=== PATIENT | male | born 1935 | race Caucasian/White ===

== ENCOUNTER → 2018-09-22 16:47 | Outpatient (CLI) | payer MEDICARE, MEDICAID, SELFPAY ==
[2018-09-22 17:23] LABS: Basophils % 0.5 % (0.1-2.0); Eosinophils # 0.2 K/mm3 (0.0-0.4); Eosinophils % 2.4 % (0.1-12.0); Hematocrit 41.2 % (42.0-52.0); Hemoglobin 13.3 g/dL (14.1-18.0); Lymphocytes # 1.7 K/mm3 (0.7-4.5); Lymphocytes % 25.3 % (10-50); Mean Corpuscular HGB Conc 32.3 g/dL (31.8-35.4); Mean Corpuscular Hemoglobin 30.2 pg (27.0-31.2); Mean Corpuscular Volume 93.3 fl (80-94); Mean Platelet Volume 7.4 fl (7.4-10.4); Monocytes # 0.4 K/mm3 (0.1-1.0); Monocytes % 5.4 % (1.7-9.3); Neutrophils # 4.5 K/mm3 (1.8-7.8); Neutrophils % 66.5 % (37.0-80.0); Platelet Count 377 K/mm3 (142-424); Red Blood Count 4.41 M/mm3 (4.60-6.20); Red Cell Distribution Width 13.4 % (11.5-17.5); White Blood Count 6.8 K/mm3 (4.8-10.8)
[2018-09-22 18:12] LABS: Alanine Aminotransferase 19 U/L (12-78); Albumin Level 3.8 gm/dL (3.4-5.0); Alkaline Phosphatase 86 U/L (46-116); Anion Gap 13.3 mEq/L (5-15); Aspartate Amino Transferase 17 U/L (15-37); Bilirubin,Total 0.5 mg/dL (0.2-1.0); Blood Urea Nitrogen 22 mg/dL (7-18); Calcium 9.3 mg/dL (8.5-10.1); Carbon Dioxide 28 mmol/L (21.0-32.0); Chloride 103 mmol/L (98-107); Chol/HDL Ratio 6.2 (1-3.5); Cholesterol 236 mg/dL (140-200); Creatinine,Serum 1.33 mg/dL (0.70-1.30); Estimated Glomerular Filt Rate 52 ml/min (>60); GFR (African American) 62 ML/MIN (>60); Globulin 3.7 gm/dl (1.3-3.2); Glucose 94 mg/dL (74-106); HDL Cholesterol 38 mg/dL (27-67); LDL Cholesterol 163 mg/dL (0-130); Potassium 4.3 mmoL/L (3.5-5.1); Sodium 140 mmol/L (136-145); T4 (Thyroxine) 9.6 ug/dl (4.7-13.3); Thyroid Stimulating Hormone 7.48 uIU/ml (0.358-3.740); Total Protein,Serum 7.5 gm/dL (6.4-8.2); Triglycerides 177 mg/dL (30-200); VLDL Cholesterol 35 mg/dL (0-40)
[2018-09-24 18:01] LABS: Vitamin D 25 Hydroxy 41.3 ng/mL (30.0-100.0)
== END ==
PROVIDERS: Visit Provider Nurse Practitioner Family
DX: I10 Essential (primary) hypertension (principal); R51 Headache
CPT/HCPCS: 80053; 80061; 82652; 84436; 84443; 85025

== ENCOUNTER → 2018-09-23 13:37 | Outpatient (CLI) | payer MEDICARE, MEDICAID, SELFPAY ==
--- NOTE | 2018-09-23 13:41 | CA_ITS ---
PROCEDURE: 2-D M-mode and color Doppler study INDICATIONS FOR THE TEST: Chest pain COPD Heart Murmur Tobacco SmokingX Palpitations Fatigue SyncopeX Edema HypertensionXDiabetes Mellitus Rheumatic Fever SOB DOEXObesity HyperlipidemiaXX Family History HD Additional History PATIENT INFORMATION HEIGHT: 68 WEIGHT:136 GENDER: Male B/P:150/88 2-D/M-MODE INTERPRETATION: 2-D MEASUREMENTS OBSERVED VALUES IN CMS Right Ventricular Dimension (RVDd) 2.7 Interventricular Septum (Thickness)(IVsd) .9 Left Ventricular Internal Dimensions(LVIDd) 5.3 Left Ventricular Posterior Wall (Thickness)(LVPWd) .8 Aortic Root 3.6 Aortic Cusp Separation 1.9 Left Atrial Dimensions (LAD) 2.9 2D 1. Left atrium is mildly enlarged, left ventricle is normal size, there is mild qualitative concentric left ventricular hypertrophy, visually estimated ejection fraction 55% with no regional wall motion abnormality. 2. The right atrium and right ventricle are mildly enlarged with normal contractility. 3. The aortic valve is minimally thickened and fibrosed. 4. The mitral and tricuspid valve leaflets are minimally thickened. 5. The pulmonic valve is poorly present. 6. No significant pericardial effusion noted. DOPPLER INTERROGATION: Doppler interrogation of the aortic, mitral and tricuspid valvular presence of mild mitral and tricuspid regurgitation, calculated right ventricular systolic pressure 38 mm of malignancy consistent with mild pulmonary hypertension, grade 1 diastolic dysfunction seen without tissue Doppler evidence of raised left atrial pressure. CONCLUSION: 1. Mildly enlarged left atrium, normal left ventricular size, mild concentric left ventricular hypertrophy, visually estimated ejection fraction 55% with no regional wall motion abnormality, grade 1 diastolic dysfunction seen without tissue Doppler evidence of raised left atrial pressure. 2. Mildly enlarged right ventricle with normal contractility. 3. Mild mitral and tricuspid regurgitation, calculated right ventricular systolic pressure is 38 mmHg consistent with mild pulmonary hypertension. 4. No significant pericardial effusion noted.
--- NOTE | 2018-09-23 13:41 | CI_ITS ---
Cerebrovascular Exam Indications: 780.4 Dizziness and giddiness. 780.2 Syncope and collapse. IMPRESSIONS 1. The bilateral vertebral arteries are patent with normal antegrade flow. 2. Study suggests less than 20% stenosis involving the right internal carotid artery. 3. Study suggests less than 20% stenosis involving the left internal carotid artery. History: Risk factors: Current tobacco use. Hypertension. Carotid duplex study. Complete study and Doppler flow study including spectral analysis, color and velasquez scale imaging. Height: Height: 172.7cm. Height: 68in. Weight: Weight: 61.7kg. Weight: 135.7lb. Body mass index: BMI: 20.7kg/m^2. Body surface area: BSA: 1.72m^2. Location: Vascular laboratory. Patient status: Outpatient. Tables: Arterial flow: + +--------+--------+ Location V sys V ed + +--------+--------+ Right CCA - proximal 55.8cm/s 14.9cm/s + +--------+--------+ Right CCA - distal 50.7cm/s 13.8cm/s + +--------+--------+ Right ECA 117cm/s 13.8cm/s + +--------+--------+ Right ICA - proximal 72.2cm/s 27cm/s + +--------+--------+ Right ICA - mid 82.7cm/s 32.5cm/s + +--------+--------+ Right ICA - distal 80.5cm/s 25.4cm/s + +--------+--------+ Right vertebral 45.2cm/s 16cm/s + +--------+--------+ Left CCA - proximal 68.9cm/s 14.3cm/s + +--------+--------+ Left CCA - distal 51.3cm/s 15.4cm/s + +--------+--------+ Left ECA 79.3cm/s 9.9cm/s + +--------+--------+ Left ICA - proximal 89.1cm/s 31.3cm/s + +--------+--------+ Left ICA - mid 86.9cm/s 28.7cm/s + +--------+--------+ Left ICA - distal 77cm/s 26.4cm/s + +--------+--------+ Left vertebral 29.6cm/s 9.4cm/s + +--------+--------+ Velocity ratios: + + + + + + Right, V sys Right, V ed Left, V sys Left, V ed + + + + + + Max ICA/dist CCA 1.63 2.36 1.74 2.03 + + + + + + (Report amended ) Electronically signed by: Teja Okeefe [id number]
== END ==
PROVIDERS: PCP Emergency Medicine; Visit Provider Internal Medicine Cardiovascular Disease
DX: E78.2 Mixed hyperlipidemia (principal); I10 Essential (primary) hypertension; I20.8 Other forms of angina pectoris; R55 Syncope and collapse
CPT/HCPCS: 93306; 93880

== ENCOUNTER → 2018-10-10 09:04 | Outpatient (CLI) | payer MEDICARE, MEDICAID, SELFPAY ==
[2018-10-10 09:18] LABS: Basophils % 0.3 % (0.1-2.0); Eosinophils # 0.3 K/mm3 (0.0-0.4); Eosinophils % 3.1 % (0.1-12.0); Hematocrit 38.8 % (42.0-52.0); Hemoglobin 12.5 g/dL (14.1-18.0); Lymphocytes # 1.5 K/mm3 (0.7-4.5); Lymphocytes % 17.4 % (10-50); Mean Corpuscular HGB Conc 32.3 g/dL (31.8-35.4); Mean Corpuscular Hemoglobin 30.4 pg (27.0-31.2); Monocytes # 0.4 K/mm3 (0.1-1.0); Monocytes % 4.9 % (1.7-9.3); Neutrophils # 6.4 K/mm3 (1.8-7.8); Neutrophils % 74.3 % (37.0-80.0); Platelet Count 422 K/mm3 (142-424); Red Blood Count 4.12 M/mm3 (4.60-6.20); Red Cell Distribution Width 13.1 % (11.5-17.5); White Blood Count 8.6 K/mm3 (4.8-10.8)
[2018-10-10 09:26] LABS: Anion Gap 13.1 mEq/L (5-15); Blood Urea Nitrogen 29 mg/dL (7-18); Calcium 9.6 mg/dL (8.5-10.1); Carbon Dioxide 28 mmol/L (21.0-32.0); Chloride 101 mmol/L (98-107); Creatinine,Serum 1.69 mg/dL (0.70-1.30); Estimated Glomerular Filt Rate 39 ml/min (>60); GFR (African American) 47 ML/MIN (>60); Glucose 96 mg/dL (74-106); Potassium 4.1 mmoL/L (3.5-5.1); Sodium 138 mmol/L (136-145)
== END ==
PROVIDERS: Visit Provider Internal Medicine
DX: I25.10 Atherosclerotic heart disease of native coronary artery without angina pectoris (principal); E78.5 Hyperlipidemia, unspecified; I10 Essential (primary) hypertension
CPT/HCPCS: 36415; 80048; 85025

== ENCOUNTER → 2018-10-12 09:07 | Outpatient (CLI) | payer MEDICARE, MEDICAID, SELFPAY ==
--- NOTE | 2018-10-12 09:08 | CA_ITS ---
APPROVED REPORT Optical Lab Technician: GLO Study Quality: Good Indications: HTN Risk Factors Hypertension Hyperlipidemia Smoking Renal Artery Doppler Origin (R) 134.0/23.7 cm/sec Proximal (R) 121.0/27.5 cm/sec Mid (R) 144.0/32.3 cm/sec Distal (R) 120.0/23.5 cm/sec Renal Aorta Ratio (R) 2.44 Segmental A. (R) 41.3/15.3 cm/sec RI: 0.62 Segmental A. Sup (R) 45.7/16.6 cm/sec Segmental A. Mid (R) 35.8/13.3 cm/sec Segmental A. Inf (R) 42.4/16.1 cm/sec Origin (L) 145.0/33.5 cm/sec Proximal (L) 128.0/30.0 cm/sec Mid (L) 119.0/25.5 cm/sec Distal (L) 91.9/25.5 cm/sec Renal Aorta Ratio (L) 2.46 Segmental A. (L) 47.7/14.3 cm/sec RI: 0.70 Segmental A. Sup (L) 63.5/17.2 cm/sec Segmental A. Mid (L) 45.5/13.7 cm/sec Segmental A. Inf (L) 34.0/12.0 cm/sec Renal Measurements Kidney Size (R) 7.5x5.8 cm Cortical Thickness (R) 1.4 cm Kidney Size (L) 10.0x5.9 cm Cortical Thickness (L) 1.0 cm Aortic Doppler Velocity Waveform Sup Jovon Ao 58.8 cm/sec Findings Normal bilateral renal artery ultrasound. 1.3 cm cyst seen upper pole right kidney. Conclusion Normal bilateral renal artery ultrasound. 1.3 cm cyst seen upper pole right kidney. Electronically signed by : Teja Okeefe MD 10/12/2018 17:27:57
== END ==
PROVIDERS: PCP Emergency Medicine; Visit Provider Physician Assistant
DX: I10 Essential (primary) hypertension (principal); I25.10 Atherosclerotic heart disease of native coronary artery without angina pectoris
CPT/HCPCS: 93976

== ENCOUNTER → 2018-10-25 11:01 | Outpatient (CLI) | payer MEDICARE, MEDICAID, SELFPAY ==
[2018-10-25 11:16] LABS: Hematocrit 34.5 % (42.0-52.0); Hemoglobin 11.7 g/dL (14.1-18.0)
== END ==
PROVIDERS: Visit Provider Physician Assistant
DX: E78.5 Hyperlipidemia, unspecified (principal); I10 Essential (primary) hypertension; I25.10 Atherosclerotic heart disease of native coronary artery without angina pectoris
CPT/HCPCS: 36415; 85014; 85018

== ENCOUNTER 2018-12-20 11:00 | Observation (INO) ==
[2018-12-20 11:21] LABS: Basophils # 0.1 K/mm3 (0-0.2); Basophils % 0.6 % (0.1-2.0); Eosinophils # 0.1 K/mm3 (0.0-0.4); Eosinophils % 1.2 % (0.1-12.0); Hematocrit 36.1 % (42.0-52.0); Lymphocytes % 20.2 % (10-50); Mean Corpuscular HGB Conc 33.2 g/dL (31.8-35.4); Mean Corpuscular Volume 94.1 fl (80-94); Mean Platelet Volume 7.8 fl (7.4-10.4); Monocytes # 0.5 K/mm3 (0.1-1.0); Monocytes % 4.8 % (1.7-9.3); Neutrophils # 7.2 K/mm3 (1.8-7.8); Neutrophils % 73.2 % (37.0-80.0); Platelet Count 515 K/mm3 (142-424); Red Blood Count 3.84 M/mm3 (4.60-6.20); Red Cell Distribution Width 12.9 % (11.5-17.5); White Blood Count 9.9 K/mm3 (4.8-10.8)
[2018-12-20 11:37] LABS: Albumin Level 3.8 gm/dL (3.4-5.0); Albumin/Globulin Ratio 0.9 (1.1-1.8); Anion Gap 20.8 mEq/L (5-15); Bilirubin,Total 0.7 mg/dL (0.2-1.0); Calcium 9.4 mg/dL (8.5-10.1); Globulin 4.3 gm/dl (1.3-3.2); Total Protein,Serum 8.1 gm/dL (6.4-8.2)
--- NOTE | 2018-12-20 11:43 | Emergency Department Note ---
ED Disposition Clinical Impression: Volume depletion, Syncope Disposition: Admitted as Observation Condition on Discharge: Good Instructions: DI for Syncope in Adults (Fainting) Referrals: Provider,Referral, [Referring] - Time of Disposition: 15:29 - Critical Care Critical Care Time: No Attestation: On 12/20/18, the high probability of a clinically significant, sudden or life threatening deterioration of the following system(s) required my full and direct attention, intervention and personal management. The time I documented below is in addition to time spent performing reported procedures but includes the following listed in this critical care notation. Medical Decision Making - Medical Records Medical records reviewed: Yes: I reviewed the patient's medical records. - Dwayne Inquiry Pt receiving controlled substance: No Dwayne was queried for this patient: No Vital Signs: 12/20/18 11:01 12/20/18 12:48 Temperature 97.7 F Temperature Source Oral Pulse Rate [Right] 75 121 H Respiratory Rate 17 Blood Pressure [Right Arm] 106/75 L 90/63 L Blood Pressure Mean [Right Arm] 85 72 02 Sat by Pulse Oximetry 90 L 98 Oxygen Delivery Method Room Air - Lab Data Lab results reviewed: Yes: I reviewed the patient's lab results. Lab Results 12/20/18 11:09: Specimen Source L radial, O2 % Room air, ABG pH 7.62 H*, ABG pCO2 16.6 L, ABG pO2 104.0 H, ABG HCO3 16.8 L, ABG Total CO2 17.3 L, ABG O2 Saturation 98, ABG Base Excess -4.4 L, Teja Test Acceptable 12/20/18 11:09: POC Glucose 93 12/20/18 11:10: WBC 9.9, RBC 3.84 L, Hgb 12.0 L, Hct 36.1 L, MCV 94.1 H, MCH 31.3 H, MCHC 33.2, RDW 12.9, Plt Count 515 H, MPV 7.8, Neut % (Auto) 73.2, Lymph % (Auto) 20.2, [place] % (Auto) 4.8, Eos % (Auto) 1.2, Baso % (Auto) 0.6, Neut # (Auto) 7.2, Lymph # (Auto) 2.0, [place] # (Auto) 0.5, Eos # (Auto) 0.1, Baso # (Auto) 0.1 12/20/18 11:10: Sodium 135 L, Potassium 3.8, Chloride 98, Carbon Dioxide 20 L, Anion Gap 20.8 H, BUN 44 H, Creatinine 1.98 H, Estimated Creat Clear 28, Estimated GFR 33 L, Est GFR ( Amer) 39 L, Glucose 123 H, Calcium 9.4, Total Bilirubin 0.7, AST 14 L, ALT 13, Alkaline Phosphatase 114, Troponin I 0.02 , Total Protein 8.1, Albumin 3.8, Globulin 4.3 H, Albumin/Globulin Ratio 0.9 L 12/20/18 11:10: Lactate 3.4 H 12/20/18 11:10: B-Natriuretic Peptide 455 H 12/20/18 11:14: Influenza Type A Ag Negative, Influenza Type B Ag Negative 12/20/18 12:26: Urine Color Yellow, Urine Appearance Clear, Urine pH 5.5, Ur Specific [place] 1.010, Urine Protein Negative, Urine Glucose (UA) Negative, Urine Ketones Negative, Urine Blood Negative, Urine Nitrate Negative, Urine Bilirubin Negative, Urine Urobilinogen 0.2, Ur Leukocyte Esterase Negative, Urine RBC None, Urine WBC None, Ur Squamous Epith Cells Occasional, Urine Bacteria Trace Result diagrams: 12/20/18 11:10 12/20/18 11:10 Orders (Tests/Meds): ED MEDICATIONS Discontinued Medications Generic Name Dose Route Start Last Admin Trade Name Freq PRN Reason Stop Dose Admin Sodium Chloride 1,000 mls @ 999 mls/hr 12/20/18 12:45 12/20/18 13:20 Sod Chlor 0.9% 1000ml Bag IV 12/20/18 14:45 999 mls/hr .Q1H1M AYDEE Administration ORDERS Category Date Time Status Consult to Cardiology [CONS] Routine Cons 12/20/18 14:25 Active Lactic Acid Follow Up (RFLX 1) Stat Lab 12/20/18 15:25 Received Lactic Acid Timed Lab 12/20/18 15:27 Received Troponin I Stat Lab 12/20/18 15:27 Received Blood Culture Stat Micro 12/20/18 11:10 Received - Physician Consults Physician Consulted: mickie serrano/anam Time: 14:45 Reason -: Pt condition Comment/Response: recommend holding meds and overnight sales advisor Additional Consult: Chiara Time: 15:28 Reason -: Admission General Adult HPI - General Chief complaint: Syncope Stated complaint: syncope Time Seen by Provider: 12/20/18 11:40 Mode of Arrival: Wheelchair Source of Information: Patient Limitations: No Limitations Description of Symptoms (Recalled from ER Triage Doc. by RN): Pt states for several weeks he has been having episodes of "passing out" Pt states today he began to have severe abd pain and soa. - History of Present Illness HPI narrative: Patient tells me he had syncopal episode last night after standing from chair. Woke up on the floor. No injuries. Relates to upper abdominal pain and decreaed appetite. He states he eats "because Im a bachelor and don't have food" He denies chest pain. He did have two coronary stents for R coronary artery and proximal LAD stenoses. These were performed on 09/28/18 . He states that upon standing, he gets dizzy but "it goes away after a minute". Last evening he had full syncope - Related Data Home Medications Medication Instructions Recorded Confirmed Aspirin [Low Dose Aspirin EC] 81 mg PO DAILY 12/20/18 12/20/18 Atorvastatin Calcium [Atorvastatin See Rx Instructions .ROUTE .COMPLEX 12/20/18 12/20/18 10mg Tab] Blood Pressure Test Kit [Blood 1 kit .ROUTE .MEDSUPPLY 12/20/18 12/20/18 Pressure Monitor Manual] Furosemide [Furosemide 20mg Tab] 20 mg PO DAILY 12/20/18 12/20/18 Levothyroxine Sodium See Rx Instructions .ROUTE .COMPLEX 12/20/18 12/20/18 [Levothyroxine 25mcg (0.025mg) Tab] Lisinopril [Lisinopril 10mg Tab] 10 mg PO BID 12/20/18 12/20/18 Metoprolol Succinate 25 mg PO DAILY 12/20/18 12/20/18 Omeprazole [Omeprazole 20mg See Rx Instructions .ROUTE .COMPLEX 12/20/18 12/20/18 Capsule] Ticagrelor [Brilinta] 90 mg PO BID 12/20/18 12/20/18 Allergies Allergy/AdvReac Type Severity Reaction Status Date / Time No Known Allergies Allergy Unknown Uncoded 11/15/18 09:42 [facility] History - Hepatitis A Screen Drug use history?: No High risk sexual behaviors?: No History of sexually transmitted infection?: No Currently employed?: No Childcare worker?: No Do you have indoor plumbing?: Yes Do you have electricity?: Yes Attestation statement:: This patient has been screened for Hepatitis A risk factors. I have reviewed the patient's past medical history: No Medical History: Reports:: Coronary Artery Disease, Gastroesophageal Reflux Disease(GERD), Hyperlipidemia, Hypertension Denies:: Internal Pacemaker, Seizures Other Medical History: Reports: Arthritis, Thyroid Disease Other Surgeries: Yes: Cardiac Catheterization, Coronary Stent, Hernia Repair, Other. 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 Denies: coffee ground emesis, vomiting blood, black, tarry stools - Genitourinary Male Genitourinary: Denies difficulty urinating, Denies flank pain, Denies h ematuria - Musculoskeletal Musculoskeletal: Denies joint pain, Denies joint stiffness, Denies joint swelling, Denies limited range of motion - Integumentary/Breasts Skin/Breast: Denies rash, Denies skin pain - Neurologic Neurologic: Reports syncope Physical Exam - General General appearance: alert, in no apparent distress, cachectic - Head Head exam: atraumatic, normocephalic, normal inspection - Eye Eye exam: Present: other (left globe has collapsed and opacified) - ENT ENT exam: Present: normal exam, normal oropharynx, mucous membranes moist, TM's normal bilaterally, normal external ear exam - Neck Neck exam: Present: normal inspection, full ROM, trachea midline. Absent: meningismus, lymphadenopathy - Chest Chest inspection: Present: normal inspection, symmetric chest wall rise. Absent: tenderness - Respiratory Respiratory exam: Present: normal lung sounds bilaterally. Absent: respiratory distress - Cardiovascular Cardiovascular exam: Present: normal rhythm, tachycardia. Absent: regular rate, JVD - Abdominal Exam Abdominal exam: Present: soft. Absent: distention, tenderness, guarding, rebound, mass, hernia - Extremities Exam Extremities exam: Present: normal inspection, full ROM, normal capillary refill. Absent: calf tenderness - Back Exam Back exam: Present: normal inspection. Absent: tenderness - Neurological Exam Neurological exam: Present: alert, oriented X3
[2018-12-20 11:48] LABS: ABG Base Excess -4.4 mmol/L (-2.4-2.3); ABG HCO3 16.8 mmhg (22.0-26.0); ABG Oxygen Saturation 98 % (90-100); ABG TCO2 17.3 mmhg (23-27)
[2018-12-20 11:50] LABS: Allen's Test ACCEPTABLE; Oxygen ROOM AIR %
[2018-12-20 11:51] LABS: ABG PH 7.62 mmol/L (7.35-7.45)
[2018-12-20 11:52] LABS: ABG PCO2 16.6 mmhg (35.0-45.0)
[2018-12-20 12:32] LABS: Microscopic, Urine URINE MICROSCOPIC (MICROSCOPIC)
[2018-12-20 12:35] LABS: Appearance,Urine CLEAR (Clear); Bilirubin,Urine Negative (Negative); Blood, Urine Negative (Negative); Color,Urine YELLOW (Yellow); Glucose,Urine (UA) Negative (Negative); Ketones,Urine Negative (Negative); Leukocyte Esterase,Urine Negative (Negative); PH,Urine 5.5 (5.0-8.5); Protein,Urine Negative (Negative); Urobilinogen,Urine 0.2 EU/dl (0.2)
[2018-12-20 12:46] LABS: Bacteria,Urine Trace /lpf; Squamous Epithelial Cell,Urine Occasional #/hpf (0-5)
--- NOTE | 2018-12-20 15:05 | Consult Report ---
History of Present Illness Consult date: 12/20/18 Chief complaint: Syncope, Tachycardia Additional Medical History:: 1. Coronary artery disease A. Left heart catheterization, 09/2018, drug-eluting stents to LAD and RCA. ANGIOGRAPHIC RESULTS The left main artery Normal The left anterior descending artery Has very proximal 10 to 20% stenosis followed by an additional mostly eccentric 70 to 80% stenosis. Large first diagonal artery has proximal 30% and mid vessel 30% stenosis The circumflex artery Is a nondominant yet still large vessel with 20 and 30% proximal stenosis The right coronary artery There is a dominant vessel and has proximal tandem 50% lesions with an mostly eccentric tight 70 to 80% mid vessel stenosis The VIEIRA ventriculogram reveals Normal 65% The left ventricular end-diastolic pressure 10 mmHg IMPRESSION Severe two-vessel coronary artery disease Successful stenting in the proximal LAD severe disease reduced to 0% with one drug-eluting stent Successful stenting of the proximal to mid right coronary artery severe disease reduced to 0% with one drug-eluting stent Normal ejection fraction Normal left ventricular end-diastolic pressure 2. Hypertension A. Normal renal duplex, 09/2018 B. Echocardiogram, 09/2018, 1. Mildly enlarged left atrium, normal left ventricular size, mild concentric left ventricular hypertrophy, visually estimated ejection fraction 55% with no regional wall motion abnormality, grade 1 diastolic dysfunction seen without tissue Doppler evidence of raised left atrial pressure. 2. Mildly enlarged right ventricle with normal contractility. 3. Mild mitral and tricuspid regurgitation, calculated right ventricular systolic pressure is 38 mmHg consistent with mild pulmonary hypertension. 4. No significant pericardial effusion noted. 3. Hyperlipidemia 4. History of gastroesophageal reflux disease History of present illness: 83-year-old white male seen in the emergency department for history of syncope last evening. Patient states he got up out of bed and the next thing he remembers is being on the floor. Denies any chest pain, pressure or tightness. Patient was coming to see us in the office today for follow-up after coronary stenting in September of this year but due to worsening symptoms was brought to the ER for further evaluation. He does relate increasing episodes of orthostatic dizziness over the last couple of weeks. He denies alcohol use but does smoke 2 cigarettes/day. He denies nausea, vomiting or diarrhea but does admit that he does not eat very well since his 4 years ago. Initial troponin is normal. EKG shows sinus tachycardia in the 120s. Preliminary echocardiogram being performed at this time shows preserved ejection fraction. Renal functions indicate some component of prerenal azotemia/dehydration. Elevated BNP but no evidence of CHF on chest x-ray Cardiology consulted for evaluation recommendations. [facility] History Medical History: Reports:: Coronary Artery Disease, Gastroesophageal Reflux Disease(GERD), Hyperlipidemia, Hypertension Denies:: Internal Pacemaker, Seizures *Have you ever received a pneumonia vaccine?: No *Have you received a flu vaccine this season?: No Other Medical History: Reports: Arthritis, Thyroid Disease Other Surgeries: Yes: Cardiac Catheterization, Coronary Stent, Hernia Repair, Other. No: Pacemaker Amputation: No Fractures: No - *Social History Smoking Status: Current every day smoker Tobacco Type: cigarettes # Packs/Day (cigarettes): 1 #Yrs smoked (if former smoker): 20 Alcohol Intake: never Substance Use Type: denies use *Occupational Status:: unemployed Household Members: none *Travel in the last 8 weeks: None Family Hx:: Cancer Meds Home Medications Medication Instructions Recorded Confirmed Type Aspirin [Low Dose Aspirin EC] 81 mg PO DAILY 12/20/18 12/20/18 History Atorvastatin Calcium [Atorvastatin See Rx Instructions .ROUTE .COMPLEX 12/20/18 12/20/18 History 10mg Tab] Blood Pressure Test Kit [Blood 1 kit .ROUTE .MEDSUPPLY 12/20/18 12/20/18 History Pressure Monitor Manual] Furosemide [Furosemide 20mg Tab] 20 mg PO DAILY 12/20/18 12/20/18 History Levothyroxine Sodium See Rx Instructions .ROUTE .COMPLEX 12/20/18 12/20/18 History [Levothyroxine 25mcg (0.025mg) Tab] Lisinopril [Lisinopril 10mg Tab] 10 mg PO BID 12/20/18 12/20/18 History Metoprolol Succinate 25 mg PO DAILY 12/20/18 12/20/18 History Omeprazole [Omeprazole 20mg See Rx Instructions .ROUTE .COMPLEX 12/20/18 12/20/18 History Capsule] Ticagrelor [Brilinta] 90 mg PO BID 12/20/18 12/20/18 History Allergies Allergy/AdvReac Type Severity Reaction Status Date / Time No Known Allergies Allergy Unknown Uncoded 11/15/18 09:42 Review of Systems - Constitutional Reports anorexia, Reports lack of energy - *Cardiovascular Reports shortness of breath with activity, Denies chest pain - *Respiratory Reports shortness of breath with activity - *Gastrointestinal Reports abdominal pain, Denies nausea, Denies vomiting - *Genitourinary Denies blood in urine - *Musculoskeletal Denies joint pain, Denies back pain - *Neurologic Reports fainting, Reports weakness Exam Vital signs and Labs for Last 24 Hours: Temp Pulse Resp BP Pulse Ox 97.7 F 121 H 17 90/63 L 98 12/20/18 11:01 12/20/18 12:48 12/20/18 11:01 12/20/18 12:48 12/20/18 12:48 Laboratory Results - last 24 hr 12/20/18 11:09: Specimen Source L radial, O2 % Room air, ABG pH 7.62 H*, ABG pCO2 16.6 L, ABG pO2 104.0 H, ABG HCO3 16.8 L, ABG Total CO2 17.3 L, ABG O2 Saturation 98, ABG Base Excess -4.4 L, Teja Test Acceptable 12/20/18 11:09: POC Glucose 93 12/20/18 11:10: WBC 9.9, RBC 3.84 L, Hgb 12.0 L, Hct 36.1 L, MCV 94.1 H, MCH 31.3 H, MCHC 33.2, RDW 12.9, Plt Count 515 H, MPV 7.8, Neut % (Auto) 73.2, Lymph % (Auto) 20.2, [place] % (Auto) 4.8, Eos % (Auto) 1.2, Baso % (Auto) 0.6, Neut # (Auto) 7.2, Lymph # (Auto) 2.0, [place] # (Auto) 0.5, Eos # (Auto) 0.1, Baso # (Auto) 0.1 12/20/18 11:10: Sodium 135 L, Potassium 3.8, Chloride 98, Carbon Dioxide 20 L, Anion Gap 20.8 H, BUN 44 H, Creatinine 1.98 H, Estimated Creat Clear 28, Estim ated GFR 33 L, Est GFR ( Amer) 39 L, Glucose 123 H, Calcium 9.4, Total Bilirubin 0.7, AST 14 L, ALT 13, Alkaline Phosphatase 114, Troponin I 0.02, Total Protein 8.1, Albumin 3.8, Globulin 4.3 H, Albumin/Globulin Ratio 0.9 L 12/20/18 11:10: Lactate 3.4 H 12/20/18 11:10: B-Natriuretic Peptide 455 H 12/20/18 11:14: Influenza Type A Ag Negative, Influenza Type B Ag Negative 12/20/18 12:26: Urine Color Yellow, Urine Appearance Clear, Urine pH 5.5, Ur Specific [place] 1.010, Urine Protein Negative, Urine Glucose (UA) Negative, Urine Ketones Negative, Urine Blood Negative, Urine Nitrate Negative, Urine Bilirubin Negative, Urine Urobilinogen 0.2, Ur Leukocyte Esterase Negative, Urine RBC None, Urine WBC None, Ur Squamous Epith Cells Occasional, Urine Bacteria Trace I & O for Last 24 hours: Intake & Output 12/18/18 12/19/18 12/20/18 12/21/18 11:59 11:59 11:59 11:59 Weight 150 lb - *Routine HEENT Exam Head: Present: normocephalic Eye: Present: EOMI, PERRL ENT: Present: mucous membranes moist - *Routine Neck Exam Present: supple. Absent: JVD, carotid bruit - *Routine Respiratory Exam Present: CTA bilaterally. Absent: accessory muscle use, rales, rhonchi, wheezes - *Routine Cardiovascular Exam Present: RRR, tachycardia. Absent: murmur, gallop, rubs - *Routine Abdominal Exam Present: soft. Absent: tenderness, distended, guarding - *Routine Extremities Exam Absent: edema, calf tenderness - *Routine Neurological Exam Present: alert, oriented X3, moving all extremities Assessment and Plan (1) Syncope Current visit: No Status: Resolved Qualifiers: Syncope type: unspecified Qualified Code(s): R55 - Syncope and collapse Category: Medical Code(s): R55 - Syncope and collapse (2) Prerenal azotemia Current visit: Yes Status: Acute Category: Medical Code(s): R79.89 - Other specified abnormal findings of blood chemistry (3) CAD (coronary artery disease) Current visit: No Status: Chronic Qualifiers: Coronary Disease-Associated Artery/Lesion type: [place] artery [place] vs. transplanted heart: [place] heart Associated angina: without angina Qualified Code(s): I25.10 - Atherosclerotic heart disease of [place] coronary artery without angina pectoris Category: Medical Code(s): I25.10 - Atherosclerotic heart disease of [place] coronary artery without angina pectoris (4) Dizziness Current visit: No Status: Chronic Category: Medical Code(s): R42 - Dizziness and giddiness (5) HLD (hyperlipidemia) Current visit: No Status: Chronic Qualifiers: Hyperlipidemia type: mixed hyperlipidemia Qualified Code(s): E78.2 - Mixed hyperlipidemia Category: Medical Code(s): E78.5 - Hyperlipidemia, unspecified (6) HTN (hypertension) Current visit: No Status: Chronic Qualifiers: Hypertension type: essential hypertension Qualified Code(s): I10 - Essential (primary) hypertension Category: Medical Code(s): I10 - Essential (primary) hypertension - Assessment and plan all Dx Assessment and Plan for all problems:: 1. Recommend admit for observation overnight on telemetry to rule out arrhythmias. Syncope likely secondary to prerenal azotemia in combination with decreased p.o. intake and Lasix use. Recommend starting IV fluids and encouraging patient to drink. 2. We will hold lisinopril and metoprolol tonight and consider restarting tomorrow on lower doses. 3. Continue aspirin, Brilinta and atorvastatin due to recent coronary stenting. 4. Will reevaluate in the a.m. to consider any further testing. 5. Recommend orthostatic vital signs in a.m.
--- NOTE | 2018-12-20 16:54 | Electrocardiograph Report ---
APPROVED REPORT Exam: Resting ECG HR:124 bpm ECG Measurements Heart Rate 124 AXES MD 144 P 88 QRSd 88 QRS 67 QT 340 T-21 QTc 488 <Conclusion> Sinus tachycardia Versus Atrial Flutter Incomplete RBBB Abnormal ECG Electronically signed by : Philippe Wallace, 12/20/2018 16:54:25
--- NOTE | 2018-12-20 20:27 | Cardiology Report ---
APPROVED REPORT EXAM: Comprehensive 2D, Doppler, and color-flow Echocardiogram Associate Software Developer: Rivka Dawkins RVT Ht: 5 ft 10 in Wt: 159lbs BSA: 1.89 BP: 90/63 mmHg Indications: Shortness of Breath, Syncope, CAD 2D Dimensions LVOT 1.97 cm (M/F) 1.5-2.5 M-Mode Dimensions RVDd 2.62 cm (0.9-2.6)LVDd 4.44 cm (3.5-5.7) LVDs 2.93 cm (3.5-5.7)IVSd 0.77 cm (0.6-1.1) PWd 0.84 cm (0.6-1.1)EF (Teich) 63.20% FS 34.00% EDV (Teich) 89.60 mL ESV (Teich) 33.00 mL LV Diastology E/A Ratio 3.25 Aortic Valve LVOT Max 77.00 (70-110 cm/s)LVOT VTI 13.71 cm Mitral Valve MV A Velocity 33.00 (40-130 cm/s) Left Ventricle Left atrium is moderately enlarged, left ventricle is normal size, mild concentric left ventricular hypertrophy, visually estimated ejection fraction 50% with no regional wall motion abnormality, diastolic parameters are inconclusive. Doppler evidence of his left ventricular end-diastolic pressure was seen. Right Ventricle Right atrium is moderately enlarged, right ventricle is mildly dilated with normal contractility. Aortic Valve Aortic valve is thickened and calcified with mild restriction to leaflet mobility. Mean gradient across valve is 19 mmHg represents mild aortic stenosis, there is mild aortic insufficiency. Mitral Valve Mitral valve leaflets are minimally thickened, there is no mitral stenosis, there is moderate mitral regurgitation. There is thought E wave with restrictive filling pattern suggestive of raise left ventricular end-diastolic pressure. Tricuspid Valve There is mild tricuspid regurgitation noted, tricuspid regurgitation jet velocity is inadequate for calculation of the right ventricular systolic pressure. Pulmonic Valve Pulmonic valve is poorly visualized. Great Vessels Aortic root is mildly enlarged. Pericardium No significant pericardial effusion noted. Conclusion 1. Moderate biatrial enlargement, normal left ventricular size, mild concentric left ventricular hypertrophy, visually estimated ejection fraction 50% with no regional wall motion abnormality, Doppler evidence of raise left ventricular end-diastolic pressure seen, diastolic parameters are inconclusive. 2. Mildly enlarged right ventricle with normal contractility. 3. Thickened and calcified aortic valve mean gradient across valve of 19 mmHg represents mild aortic stenosis, there is mild aortic insufficiency. 4. Moderate mitral and mild tricuspid regurgitation. 5. No significant pericardial effusion noted. Electronically signed by : Sampson Duarte, 12/20/2018 20:26:58
--- NOTE | 2018-12-21 03:54 | Pharmacy Consult Notes ---
[facility] Pharmacy VTE Monitoring - Patient Demographics Admission date: 12/20/18 Report Date: 12/21/18 Time: 03:54 Allergies/Adverse Reactions: Patient Allergies No Known Allergies Allergy (Unknown, Uncoded 11/15/18 09:42) Height: 1.65 m Weight: 57.748 kg Patient Problems: Current Active Problems (Last Updated 11/01/18 @ 10:35 by Bettye Zeng RN) Prerenal azotemia (Acute) Volume depletion (Acute) Syncope (Acute) - VTE Risk Labs: VTE Related Lab Results Hgb 12.0 g/dL (14.1-18.0) L 12/20/18 11:10 Hct 36.1 % (42.0-52.0) L 12/20/18 11:10 Plt Count 515 K/mm3 (142-424) H 12/20/18 11:10 BUN 44 mg/dL (7-18) H 12/20/18 11:10 Creatinine 1.98 mg/dL (0.70-1.30) H 12/20/18 11:10 Estimated Creat Clear 28 mL/min (50-200) 12/20/18 11:10 Was VTE Risk Assessment Performed: Yes VTE Score: 2 VTE Risk Level: Very Low Risk Clinical Trial Participant: No - Prophylaxis VTE Prophylaxis Ordered?: Yes Types of VTE Prophylaxis: TEDS Knee High
[2018-12-21 07:22] LABS: Anion Gap 12.9 mEq/L (5-15)
[2018-12-21 08:00] LABS: Calcium 8.3 mg/dL (8.5-10.1)
[2018-12-21 08:38] LABS: Basophils # 0.1 K/mm3 (0-0.2); Basophils % 0.7 % (0.1-2.0); Eosinophils # 0.2 K/mm3 (0.0-0.4); Eosinophils % 2.7 % (0.1-12.0); Hematocrit 28.8 % (42.0-52.0); Lymphocytes # 1.2 K/mm3 (0.7-4.5); Lymphocytes % 18.4 % (10-50); Mean Corpuscular HGB Conc 32.9 g/dL (31.8-35.4); Mean Corpuscular Volume 95.2 fl (80-94); Mean Platelet Volume 8.2 fl (7.4-10.4); Monocytes # 0.3 K/mm3 (0.1-1.0); Monocytes % 5.2 % (1.7-9.3); Neutrophils # 4.7 K/mm3 (1.8-7.8); Neutrophils % 72.9 % (37.0-80.0); Platelet Count 374 K/mm3 (142-424); Red Blood Count 3.02 M/mm3 (4.60-6.20); Red Cell Distribution Width 12.8 % (11.5-17.5); White Blood Count 6.4 K/mm3 (4.8-10.8)
[2018-12-21 08:43] LABS: Hemoglobin 9.4 g/dL (14.1-18.0)
--- NOTE | 2018-12-21 09:27 | Progress Note ---
Subjective Date: 12/21/18 Time: 09:21 Principal diagnosis: dehydration, syncope Interval history: This is an 83-year-old white male who presented to the emergency department with complaints of syncope. The patient states that since being in the hospital he feels so much better. He has not had any recurrence of his syncope and no dizziness. He states that he has been up several times to go to the bathroom and has not had any dizziness. He denies any chest pain or pressure. He denies any shortness of breath or edema. He denies any fever, chills, nausea, vomiting, diarrhea, PND or orthopnea. The patient does remain tachycardic with a heart rate around 120 today. He states that he does not feel his heart racing. Upon admission to the hospital the patient was found to be dehydrated. All of his blood pressure medications were stopped and he was started on IV fluids. The patient does need better heart rate control at this time. Exam Vital signs and Labs for Last 24 Hours: Temp Pulse Resp BP Pulse Ox 98.1 F 120 H 20 106/72 L 100 12/21/18 07:55 12/21/18 08:00 12/21/18 07:55 12/21/18 07:55 12/21/18 08:00 Laboratory Results - last 24 hr 12/20/18 11:09: Specimen Source L radial, O2 % Room air, ABG pH 7.62 H*, ABG pCO2 16.6 L, ABG pO2 104.0 H, ABG HCO3 16.8 L, ABG Total CO2 17.3 L, ABG O2 Saturation 98, ABG Base Excess -4.4 L, Teja Test Acceptable 12/20/18 11:09: POC Glucose 93 12/20/18 11:10: WBC 9.9, RBC 3.84 L, Hgb 12.0 L, Hct 36.1 L, MCV 94.1 H, MCH 31.3 H, MCHC 33.2, RDW 12.9, Plt Count 515 H, MPV 7.8, Neut % (Auto) 73.2, Lymph % (Auto) 20.2, [place] % (Auto) 4.8, Eos % (Auto) 1.2, Baso % (Auto) 0.6, Neut # (Auto) 7.2, Lymph # (Auto) 2.0, [place] # (Auto) 0.5, Eos # (Auto) 0.1, Baso # (Auto) 0.1 12/20/18 11:10: Sodium 135 L, Potassium 3.8, Chloride 98, Carbon Dioxide 20 L, Anion Gap 20.8 H, BUN 44 H, Creatinine 1.98 H, Estimated Creat Clear 28, Estimated GFR 33 L, Est GFR ( Amer) 39 L, Glucose 123 H, Calcium 9.4, Total Bilirubin 0.7, AST 14 L, ALT 13, Alkaline Phosphatase 114, Troponin I 0.02, Total Protein 8.1, Albumin 3.8, Globulin 4.3 H, Albumin/Globulin Ratio 0.9 L 12/20/18 11:10: Lactate 3.4 H 12/20/18 11:10: B-Natriuretic Peptide 455 H 12/20/18 11:14: Influenza Type A Ag Negative, Influenza Type B Ag Negative 12/20/18 12:26: Urine Color Yellow, Urine Appearance Clear, Urine pH 5.5, Ur Specific [place] 1.010, Urine Protein Negative, Urine Glucose (UA) Negative, Urine Ketones Negative, Urine Blood Negative, Urine Nitrate Negative, Urine Bilirubin Negative, Urine Urobilinogen 0.2, Ur Leukocyte Esterase Negative, Urine RBC None, Urine WBC None, Ur Squamous Epith Cells Occasional, Urine Bacteria Trace 12/20/18 15:27: Lactate 2.4 H 12/20/18 15:27: Troponin I 0.03 12/20/18 17:30: Lactate 0.9 12/20/18 19:00: Troponin I 0.02 12/20/18 19:03: Troponin I 0.03 12/21/18 06:37: WBC 6.4 D, RBC 3.02 L, Hgb 9.4 L D, Hct 28.8 L, MCV 95.2 H, MCH 31.4 H, MCHC 32.9, RDW 12.8, Plt Count 374 D, MPV 8.2, Neut % (Auto) 72.9, Lymph % (Auto) 18.4, [place] % (Auto) 5.2, Eos % (Auto) 2.7, Baso % (Auto) 0.7, Neut # (Auto) 4.7, Lymph # (Auto) 1.2, [place] # (Auto) 0.3, Eos # (Auto) 0.2, Baso # (Auto) 0.1 12/21/18 06:37: Sodium 140, Potassium 3.9, Chloride 108 H, Carbon Dioxide 23, Anion Gap 12.9, BUN 33 H, Creatinine 1.46 H D, Estimated Creat Clear 32, Estimated GFR 46 L, Est GFR ( Amer) 56 L D, Glucose 87 D, Calcium 8.3 L D I & O for Last 24 hours: Intake & Output 12/18/18 12/19/18 12/20/18 12/21/18 23:59 23:59 23:59 23:59 Intake Total 1360 / 1360 1504 / 1504 Output Total 600 / 800 650 / 650 Balance 760 / 560 854 / 854 Weight 127 lb 5 oz 130 lb 7 oz Narrative: EKG is sinus rhythm with a rate of 121. - Constitutional no acute distress, average body habitus - *Routine HEENT Exam Head: Present: normocephalic, atraumatic ENT: Present: mucous membranes moist - *Routine Neck Exam Present: supple, full ROM, normal carotid upstroke. Absent: JVD, carotid bruit, lymphadenopathy - *Routine Respiratory Exam Present: CTA bilaterally - *Routine Cardiovascular Exam Present: Normal S1, Normal S2, tachycardia. Absent: murmur - *Routine Abdominal Exam Present: soft, normoactive bowel sounds. Absent: tenderness, distended - *Routine Extremities Exam Present: full ROM, pulses intact, normal capillary refill. Absent: cyanosis, clubbing, edema - *Routine Skin Exam Present: intact, warm. Absent: erythema, rash - *Routine Neurological Exam Present: alert, oriented X3, CN II-XII intact - Detailed Eye Exam Eyelids: Left normal inspection Progress Note: A&P (1) Syncope Status: Resolved Current Visit: No (2) Prerenal azotemia Status: Acute Current Visit: Yes (3) CAD (coronary artery disease) Status: Chronic Current Visit: No (4) Dizziness Status: Chronic Current Visit: No (5) HLD (hyperlipidemia) Status: Chronic Current Visit: No (6) HTN (hypertension) Status: Chronic Current Visit: No (7) Sinus tachycardia Status: Acute Current Visit: Yes Assessment and Plan for All Diagnoses:: Plan: 1. Patient admitted to the hospital with dehydration and syncope. All of his blood pressure medications have been stopped and he has been started on IV fluids. The patient is tolerating this well and feels much better today. 2. The patient's creatinine went from 1.98 down to 1.46. 3. We will stop his Lasix as the patient was dehydrated most likely from his diuretic use. 4. The patient remains tachycardic today. His heart rate is 121. We will get him started on Toprol-XL 12.5 milligrams p.o. daily for better heart rate control. 5. The patient denies any chest pain or pressure. His troponins are negative and he is ruled out for an MA. No plans for invasive cardiac testing at this time. He will continue Brilinta and aspirin for dual antiplatelet therapy. 6. His blood pressure is acceptable. 7. His LDL goal is less than 55. He is on a statin. 8. Further recommendations will be made pending the patient's response to treatment. As long as the patient's heart rate improves on Toprol he is stable for discharge home today from a cardiovascular standpoint and will need to follow-up in 1 to 2 weeks. Thank you for the opportunity to help participate in the care of this patient.
--- NOTE | 2018-12-21 15:56 | History & Physical Report ---
*Admission Date: 12/20/18 *Chief complaint: passing out *History of present illness: this wm presents with episode of passing out and was seen in the ed - he denied chest pain or trauma -t states for several weeks he has been having episodes of "passing out" Patient tells me he had syncopal episode last night after standing from chair. Woke up on the floor. No injuries. Relates to upper abdominal pain and decreaed appetite. He states he eats "because Im a bachelor and don't have food" He denies chest pain. He did have two coronary stents for R coronary artery and proximal LAD stenoses. These were performed on 09/28/18 . He states that upon standing, he gets dizzy but "it goes away after a minute". Last evening he had full syncope pt was admiied for eval [facility] History I have reviewed the patient's past medical history: Yes Medical History: Reports:: Coronary Artery Disease, Gastroesophageal Reflux Disease(GERD), Hyperlipidemia, Hypertension Denies:: Diabetes Mellitus Type 1, Diabetes Mellitus Type 2, Internal Pacemaker, Seizures *Have you ever received a pneumonia vaccine?: No *Have you received a flu vaccine this season?: No Other Medical History: Reports: Arthritis, Thyroid Disease Other Surgeries: Yes: Cardiac Catheterization, Coronary Stent, Hernia Repair, Other. No: Pacemaker Amputation: No Fractures: No - *Social History Smoking Status: Current every day smoker Tobacco Type: cigarettes # Packs/Day (cigarettes): 2 #Yrs smoked (if former smoker): 20 Alcohol Intake: never Substance Use Type: denies use *Occupational Status:: unemployed Household Members: none *Travel in the last 8 weeks: None Family Hx:: Cancer Review of Systems - Review of Systems Review of systems:: pertinent systems reviewed and negative unless documented below - Constitutional Denies fever(s) - Eyes Denies change in vision - ENT Denies sore throat - *Cardiovascular Reports lightheadedness, Reports fast heart rate, Denies chest pain - *Respiratory Denies cough - *Gastrointestinal Denies abdominal pain - *Genitourinary Denies blood in urine - *Musculoskeletal Denies joint pain, Denies joint swelling - Integumentary/Breasts Denies rash - *Neurologic Reports dizziness, Reports fainting, Reports weakness, Denies abnormal speech, Denies seizure-like activity - Psychiatric Denies anxiety Meds Home Medications Medication Instructions Recorded Confirmed Type Aspirin [Low Dose Aspirin EC] 81 mg PO DAILY 12/20/18 12/20/18 History Atorvastatin Calcium [Atorvastatin 10 mg PO DAILY 12/20/18 12/20/18 History 10mg Tab] Furosemide [Furosemide 20mg Tab] 20 mg PO DAILY 12/20/18 12/20/18 History Levothyroxine Sodium 25 mcg PO DAILY 12/20/18 12/20/18 History [Levothyroxine 25mcg (0.025mg) Tab] Lisinopril [Lisinopril 10mg Tab] 10 mg PO BID 12/20/18 12/20/18 History Metoprolol Succinate 25 mg PO DAILY 12/20/18 12/20/18 History Omeprazole [Omeprazole 20mg 20 mg PO DAILY 12/20/18 12/20/18 History Capsule] Ticagrelor [Brilinta] 90 mg PO BID 12/20/18 12/20/18 History Allergies Allergy/AdvReac Type Severity Reaction Status Date / Time No Known Allergies Allergy Unknown Uncoded 11/15/18 09:42 Exam Vital signs and Labs for Last 24 Hours: Temp Pulse Resp BP Pulse Ox 97.4 F L 120 H 18 122/87 100 12/21/18 11:41 12/21/18 12:00 12/21/18 11:41 12/21/18 11:41 12/21/18 11:41 Laboratory Results - last 24 hr 12/20/18 15:27: Lactate 2.4 H 12/20/18 15:27: Troponin I 0.03 12/20/18 17:30: Lactate 0.9 12/20/18 19:00: Troponin I 0.02 12/20/18 19:03: Troponin I 0.03 12/21/18 06:37: WBC 6.4 D, RBC 3.02 L, Hgb 9.4 L D, Hct 28.8 L, MCV 95.2 H, MCH 31.4 H, MCHC 32.9, RDW 12.8, Plt Count 374 D, MPV 8.2, Neut % (Auto) 72.9, Lymph % (Auto) 18.4, [place] % (Auto) 5.2, Eos % (Auto) 2.7, Baso % (Auto) 0.7, Neut # (Auto) 4.7, Lymph # (Auto) 1.2, [place] # (Auto) 0.3, Eos # (Auto) 0.2, Baso # (Auto) 0.1 12/21/18 06:37: Sodium 140, Potassium 3.9, Chloride 108 H, Carbon Dioxide 23, Anion Gap 12.9, BUN 33 H, Creatinine 1.46 H D, Estimated Creat Clear 32, Estimated GFR 46 L, Est GFR ( Amer) 56 L D, Glucose 87 D, Calcium 8.3 L D I & O for Last 24 hours: Intake & Output 12/19/18 12/20/18 12/21/18 12/22/18 11:59 11:59 11:59 11:59 Intake Total 2864 / 2864 240 / 240 Output Total 1250 / 1250 Balance 1614 / 1614 240 / 240 Weight 150 lb 130 lb 7 oz 130 lb 6.984 oz - Constitutional no acute distress - *Routine HEENT Exam Head: Present: normocephalic Eye: Present: EOMI, PERRL ENT: Present: mucous membranes dry - *Routine Neck Exam Present: supple. Absent: JVD - *Routine Respiratory Exam Present: CTA bilaterally - *Routine Cardiovascular Exam Present: murmur, tachycardia - *Routine Abdominal Exam Present: soft - *Routine Extremities Exam Absent: calf tenderness - *Routine Skin Exam Present: intact - *Routine Neurological Exam Present: alert, oriented X3, CN II-XII intact - Routine Psychiatric Exam Present: normal affect Assessment and Plan (1) Prerenal azotemia Current visit: Yes Status: Acute Category: Medical Code(s): R79.89 - Other specified abnormal findings of blood chemistry (2) CAD (coronary artery disease) Current visit: No Status: Chronic Qualifiers: Coronary Disease-Associated Artery/Lesion type: [place] artery [place] vs. transplanted heart: [place] heart Associated angina: without angina Qualified Code(s): I25.10 - Atherosclerotic heart disease of [place] coronary artery without angina pectoris Category: Medical Code(s): I25.10 - Atherosclerotic heart disease of [place] coronary artery without angina pectoris (3) Dizziness Current visit: No Status: Chronic Category: Medical Code(s): R42 - Dizziness and giddiness (4) HLD (hyperlipidemia) Current visit: No Status: Chronic Qualifiers: Hyperlipidemia type: mixed hyperlipidemia Qualified Code(s): E78.2 - Mixed hyperlipidemia Category: Medical Code(s): E78.5 - Hyperlipidemia, unspecified (5) HTN (hypertension) Current visit: No Status: Chronic Qualifiers: Hypertension type: essential hypertension Qualified Code(s): I10 - Essential (primary) hypertension Category: Medical Code(s): I10 - Essential (primary) hypertension (6) Sinus tachycardia Current visit: Yes Status: Acute Category: Medical Code(s): R00.0 - Tachycardia, unspecified (7) Syncope Current visit: Yes Status: Acute Qualifiers: Syncope type: unspecified Qualified Code(s): R55 - Syncope and collapse Category: Medical Code(s): R55 - Syncope and collapse (8) Acquired hypothyroidism Current visit: Yes Status: Acute Category: Medical Code(s): E03.9 - Hypothyroidism, unspecified
--- NOTE | 2018-12-21 17:50 | Electrocardiograph Report ---
APPROVED REPORT Exam: Resting ECG HR:105 bpm ECG Measurements Heart Rate 105 AXES QRSd 94 QRS 37 QT 356 T49 QTc 470 <Conclusion> Atrial fibrillation Incomplete right bundle branch block Abnormal ECG Electronically signed by : Philippe Wallace, 12/21/2018 17:49:59
--- NOTE | 2018-12-22 08:07 | Progress Note ---
Subjective Date: 12/22/18 Time: 08:03 Principal diagnosis: dehydration, syncope Interval history: 83-year-old white male in room in no acute distress. Denies any further dizziness. States he feels good and wants to go home. Telemetry continues to show heart rate in the 120 bpm range despite addition of beta-karlee yesterday. Blood pressure sitting 117/72 Blood pressure standing proximally 100/70 Exam Vital signs and Labs for Last 24 Hours: Temp Pulse Resp BP Pulse Ox 98.0 F 87 18 98/55 L 95 12/22/18 04:00 12/22/18 04:00 12/22/18 04:00 12/22/18 04:00 12/22/18 04:00 Laboratory Results - last 24 hr 12/21/18 06:37: WBC 6.4 D, RBC 3.02 L, Hgb 9.4 L D, Hct 28.8 L, MCV 95.2 H, MCH 31.4 H, MCHC 32.9, RDW 12.8, Plt Count 374 D, MPV 8.2, Neut % (Auto) 72.9, Lymph % (Auto) 18.4, [place] % (Auto) 5.2, Eos % (Auto) 2.7, Baso % (Auto) 0.7, Neut # (Auto) 4.7, Lymph # (Auto) 1.2, [place] # (Auto) 0.3, Eos # (Auto) 0.2, Baso # (Auto) 0.1 I & O for Last 24 hours: Intake & Output 12/19/18 12/20/18 12/21/18 12/22/18 11:59 11:59 11:59 11:59 Intake Total 2864 / 2864 1469 / 1469 Output Total 1250 / 1250 375 / 375 Balance 1614 / 1614 1094 / 1094 Weight 150 lb 130 lb 7 oz 130 lb 4 oz - *Routine Respiratory Exam Present: CTA bilaterally. Absent: accessory muscle use, rales, rhonchi, wheezes - *Routine Cardiovascular Exam Present: tachycardia. Absent: murmur, gallop, rubs - *Routine Abdominal Exam Present: soft. Absent: tenderness, distended, guarding - *Routine Extremities Exam Absent: edema, calf tenderness - *Routine Neurological Exam Present: alert, oriented X3, moving all extremities Progress Note: A&P (1) Prerenal azotemia Status: Acute Current Visit: Yes (2) CAD (coronary artery disease) Status: Chronic Current Visit: No (3) Dizziness Status: Chronic Current Visit: No (4) HLD (hyperlipidemia) Status: Chronic Current Visit: No (5) HTN (hypertension) Status: Chronic Current Visit: No (6) Sinus tachycardia Status: Acute Current Visit: Yes (7) Syncope Status: Acute Current Visit: Yes (8) Acquired hypothyroidism Status: Acute Current Visit: Yes (9) Anemia Status: Acute Current Visit: Yes Assessment and Plan for All Diagnoses:: 1. Syncope felt secondary to dehydration in conjunction with poor p.o. intake and Lasix use. Patient has received IV fluids with resolution of dizziness feeling but still has blood pressure drop with standing. Lasix has been stopped. 2. Anemia, partially dilutional due to IV fluids 3. Tachycardia with EKG confirming A. fib now with rate in the 90's. Will Add Xarelto 15 mg daily. Stop ASA and brilinta and switch to plavix for recent AMY in 09/2018. 4. CAD with recent drug-eluting stent placement, switch to plavix due to Xarelto. 5. OK for discharge home from cardiology standpoint. 6. Follow up with Dr. Guadarrama next week 7. Follow up with Cardiology in one month and if remains in A. fib then will proceed with SUN/Cardioversion. 8. Home med recommendations: Plavix 75 mg daily, Xarelto 15 mg daily with meal, metoprolol succinate 12.5 mg daily, atorvastatin 10 mg daily and pantoprazole 40 mg daily. Other medications per Dr. Guadarrama.
[2018-12-22 08:35] LABS: White Blood Count 6.9 K/mm3 (4.8-10.8)
[2018-12-22 08:36] LABS: Basophils % 0.5 % (0.1-2.0); Eosinophils % 2.4 % (0.1-12.0); Hematocrit 25.6 % (42.0-52.0); Hemoglobin 9.1 g/dL (14.1-18.0); Mean Corpuscular HGB Conc 35.6 g/dL (31.8-35.4); Mean Corpuscular Volume 96.2 fl (80-94); Mean Platelet Volume 7.3 fl (7.4-10.4); Monocytes % 6.4 % (1.7-9.3); Neutrophils # 4.6 K/mm3 (1.8-7.8); Neutrophils % 66.6 % (37.0-80.0); Platelet Count 388 K/mm3 (142-424); Red Blood Count 2.67 M/mm3 (4.60-6.20); Red Cell Distribution Width 13.7 % (11.5-17.5)
[2018-12-22 08:37] LABS: Eosinophils # 0.2 K/mm3 (0.0-0.4); Lymphocytes # 1.7 K/mm3 (0.7-4.5); Monocytes # 0.4 K/mm3 (0.1-1.0)
--- NOTE | 2018-12-22 08:43 | Discharge Summary ---
General - General Admission date:: 12/20/18 Discharge date: 12/22/18 HPI HPI: this wm presents with episode of passing out and was seen in the ed - he denied chest pain or trauma -t states for several weeks he has been having episodes of "passing out" Patient tells me he had syncopal episode last night after standing from chair. Woke up on the floor. No injuries. Relates to upper abdominal pain and decreaed appetite. He states he eats "because Im a bachelor and don't have food" He denies chest pain. He did have two coronary stents for R coronary artery and proximal LAD stenoses. These were performed on 09/28/18 . He states that upon standing, he gets dizzy but "it goes away after a minute". Last evening he had full syncope pt was admiied for [facility] Hospital Course Hospital Course: This is an 83-year-old white male who presented to the emergency department with complaints of syncope. The patient states that since being in the hospital he feels so much better. He has not had any recurrence of his syncope and no dizziness. He states that he has been up several times to go to the bathroom and has not had any dizziness. He denies any chest pain or pressure. He denies any shortness of breath or edema. He denies any fever, chills, nausea, vomiting, diarrhea, PND or orthopnea. The patient does remain tachycardic with a heart rate around 120 today. He states that he does not feel his heart racing. Upon admission to the hospital the patient was found to be dehydrated. All of his blood pressure medications were stopped and he was started on IV fluids. The patient does need better heart rate control at this time. (Per Gi Echeverria APRN) Cards has seen and rec: 1. Syncope felt secondary to dehydration in conjunction with poor p.o. intake and Lasix use. Patient has received IV fluids with resolution of dizziness feeling but still has blood pressure drop with standing. 2. Anemia, partially dilutional due to IV fluids 3. Tachycardia, question atrial flutter, despite beta-karlee therapy we will repeat EKG today and consider further treatment after discussion with Dr. Mack. 4. CAD with recent drug-eluting stent placement, continue DAPT. 83-year-old male patient sitting up on side of the bed, denies chest pain shortness of breath or any other concerns. He does report that he does feel good and is requesting to go home. Discussed discharge back to home and follow- up appointments, patient is in agreement. EKG this morning is A. fib with a rate of 94 we will start Xarelto, he will be given samples and will follow-up with PCP next week. He will have an appointment with cardiology in 4 weeks for rhythm evaluation and possible SUN and cardioversion. ECHO: Conclusion 1. Moderate biatrial enlargement, normal left ventricular size, mild concentric left ventricular hypertrophy, visually estimated ejection fraction 50% with no regional wall motion abnormality, Doppler evidence of raise left ventricular end-diastolic pressure seen, diastolic parameters are inconclusive. 2. Mildly enlarged right ventricle with normal contractility. 3. Thickened and calcified aortic valve mean gradient across valve of 19 mmHg represents mild aortic stenosis, there is mild aortic insufficiency. 4. Moderate mitral and mild tricuspid regurgitation. 5. No significant pericardial effusion noted. Electronically signed by : Sampson Duarte, Head CT: IMPRESSION: 1. No acute intracranial finding. 2. 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 Consider upright PA and lateral chest for further evaluation Dictated by: Maldonado, Abd/Pelvis CT: IMPRESSION: 1. Distended hyperdense gallbladder with suspected stones. 2. Markedly enlarged prostate. There is associated thickening of the urinary bladder wall. 3. Multiple unopacified bowel loops in the abdomen or pelvis which could obscure or mimic pathology. If symptoms persist, consider repeat exam with IV and oral contrast. Dictated by: Maldonado, Objective Vital signs: Temp Pulse Resp BP Pulse Ox 98.0 F 87 18 98/55 L 95 12/22/18 04:00 12/22/18 04:00 12/22/18 04:00 12/22/18 04:00 12/22/18 04:00 no acute distress - *Routine HEENT Exam Head: Present: normocephalic, atraumatic. Absent: scalp tenderness Eye: Present: EOMI, PERRL, normal accommodation. Absent: scleral injection ENT: Present: mucous membranes moist. Absent: sinus tenderness - *Routine Neck Exam Present: full ROM, trachea midline. Absent: JVD, tracheal deviation - *Routine Respiratory Exam Present: CTA bilaterally, diminished air movement. Absent: accessory muscle use - *Routine Cardiovascular Exam Present: RRR - *Routine Abdominal Exam Present: soft, normoactive bowel sounds. Absent: tenderness, firm - *Routine Extremities Exam Present: full ROM, pulses intact. Absent: cyanosis, calf tenderness - Routine Back/Spine/Pelvis Exam Back/Spine: Present: full ROM. Absent: CVA tenderness - *Routine Skin Exam Present: intact. Absent: cyanosis, wounds - *Routine Neurological Exam Present: alert, oriented X3, CN II-XII intact, moving all extremities. Absent: altered mental status, tremors - Routine Psychiatric Exam Present: normal affect. Absent: suicidal ideation, homicidal ideation Results Labs on day of discharge: Labs from last 24 hours 12/22/18 12/21/18 08:18 06:37 WBC 6.9 6.4 D RBC 2.67 L 3.02 L Hgb 9.1 L 9.4 L D Hct 25.6 L 28.8 L MCV 96.2 H 95.2 H MCH 34.2 H 31.4 H MCHC 35.6 H 32.9 RDW 13.7 12.8 Plt Count 388 374 D MPV 7.3 L 8.2 Neut % (Auto) 66.6 72.9 Lymph % (Auto) 24.0 18.4 [place] % (Auto) 6.4 5.2 Eos % (Auto) 2.4 2.7 Baso % (Auto) 0.5 0.7 Neut # (Auto) 4.6 4.7 Lymph # (Auto) 1.7 1.2 [place] # (Auto) 0.4 0.3 Eos # (Auto) 0.2 0.2 Baso # (Auto) 0.0 0.1 - Additional Comments Rounded with Dr. Guadarrama, all orders per Dr. Guadarrama 1. We will discharge home today 2. We will start Xarelto 3. We will see in office next week 4. Follow-up in cardiology in 4 weeks with possible SUN and cardioversion DS: Diagnosis - Discharge Diagnosis (1) Prerenal azotemia Status: Acute (2) CAD (coronary artery disease) Status: Chronic (3) Dizziness Status: Chronic (4) HLD (hyperlipidemia) Status: Chronic (5) HTN (hypertension) Status: Chronic (6) Sinus tachycardia Status: Acute (7) Syncope Status: Acute (8) Acquired hypothyroidism Status: Acute (9) Anemia Status: Acute (10) A-fib Status: Acute Discharge Plan - Patient Discharge Instructions ACTIVITY: Continue current activity DIET: continue same diet Patient Instructions: DI for Syncope in Adults (Fainting), Dehydration - Follow up Plan Follow up with: Henry Avendaño APRN [Nurse Practitioner] - 1 week Dima Mack MD [Staff Physician] - 1 month Disposition: Home, Self-Snf Medications: Home Medications Medication Instructions Recorded Confirmed Type Aspirin [Low Dose Aspirin EC] 81 mg PO DAILY 12/20/18 12/20/18 History Atorvastatin Calcium [Atorvastatin 10 mg PO DAILY 12/20/18 12/20/18 History 10mg Tab] Furosemide [Furosemide 20mg Tab] 20 mg PO DAILY 12/20/18 12/20/18 History Levothyroxine Sodium 25 mcg PO DAILY 12/20/18 12/20/18 History [Levothyroxine 25mcg (0.025mg) Tab] Lisinopril [Lisinopril 10mg Tab] 10 mg PO BID 12/20/18 12/20/18 History Metoprolol Succinate 25 mg PO DAILY 12/20/18 12/20/18 History Omeprazole [Omeprazole 20mg 20 mg PO DAILY 12/20/18 12/20/18 History Capsule] Ticagrelor [Brilinta] 90 mg PO BID 12/20/18 12/20/18 History Prescriptions/Medication Reconciliation: New Rivaroxaban [Xarelto 15mg tablet] 15 mg PO QPMWM tablet Continued Atorvastatin Calcium [Atorvastatin 10mg Tab] 10 mg PO DAILY Levothyroxine Sodium [Levothyroxine 25mcg (0.025mg) Tab] 25 mcg PO DAILY Lisinopril [Lisinopril 10mg Tab] 10 mg PO BID Metoprolol Succinate 25 mg PO DAILY Omeprazole [Omeprazole 20mg Capsule] 20 mg PO DAILY Discontinued Furosemide [Furosemide 20mg Tab] 20 mg PO DAILY Ticagrelor [Brilinta] 90 mg PO BID Aspirin [Low Dose Aspirin EC] 81 mg PO DAILY - Problem Reconciliation Problems Reviewed?: Yes
[2018-12-22 08:53] LABS: Anion Gap 13.9 mEq/L (5-15); Calcium 8.7 mg/dL (8.5-10.1)
--- NOTE | 2018-12-22 21:04 | Electrocardiograph Report ---
APPROVED REPORT Exam: Resting ECG HR:94 bpm ECG Measurements Heart Rate 94 AXES QRSd 96 QRS 36 QT 364 T16 QTc 455 <Conclusion> Atrial fibrillation Low voltage QRS Incomplete right bundle branch block Poor r wave progression Abnormal ECG Electronically signed by : Kishore Kelley, 12/22/2018 21:03:34
== END 2018-12-22 10:43 | disposition home or self-care (01) ==
LOC: ER 11:00 → 2ND 11:00
PROVIDERS: ADMIT Emergency Medicine; ATTEND Emergency Medicine
CPT/HCPCS: 36415; 70450; 71010; 71045; 74176; 80048; 80053; 81001; 82803; 82962; 83605; 83880; 84484; 85025; 87040; 87275; 87276; 93005; 93306; 96365; 99285; G0378

== ENCOUNTER → 2019-02-13 11:10 | Outpatient (CLI) | payer MEDICARE, MEDICAID, SELFPAY ==
--- NOTE | 2019-02-13 11:16 | XR_ITS ---
PROCEDURE: XR FOOT RT MIN 3V CLINICAL INDICATION: fall COMPARISON: No exams were available for comparison FINDINGS: No fracture or dislocation. No lytic or blastic change. There is normal mineralization. The joint spaces are well-preserved. No significant degenerative/arthritic changes. There is mild diffuse soft tissue swelling about the distal 1st meta tarsal and MP joint great toe. There is minimal spurring at the medial base of the proximal phalanx of the great toe. No erosive changes evident. There are no calcaneal spurs. Other findings:None. IMPRESSION: Mild diffuse soft tissue swelling medially, no acute fracture seen Dictated by: Dr. Mo Pederson MD 02/13/2019 11:[address] Mo Pederson MD in [place] 02/13/2019 11:51
== END ==
PROVIDERS: PCP Nurse Practitioner Family; Visit Provider Nurse Practitioner Family
DX: M79.671 Pain in right foot (principal)
CPT/HCPCS: 73630

== ENCOUNTER → 2019-02-27 09:23 | Outpatient (CLI) | payer MEDICARE, MEDICAID, SELFPAY ==
[2019-02-27 13:06] LABS: Alanine Aminotransferase 13 U/L (12-78); Albumin Level 3.6 gm/dL (3.4-5.0); Alkaline Phosphatase 100 U/L (46-116); Anion Gap 17.5 mEq/L (5-15); Aspartate Amino Transferase 15 U/L (15-37); Bilirubin,Direct 0.1 mg/dL (0.0-0.2); Bilirubin,Indirect 0.2 mg/dL (0.0-0.9); Bilirubin,Total 0.3 mg/dL (0.2-1.0); Blood Urea Nitrogen 22 mg/dL (7-18); Calcium 9.2 mg/dL (8.5-10.1); Carbon Dioxide 23 mmol/L (21.0-32.0); Chloride 102 mmol/L (98-107); Chol/HDL Ratio 2.6 (1-3.5); Cholesterol 128 mg/dL (140-200); Creatinine,Serum 0.44 mg/dL (0.70-1.30); Estimated Glomerular Filt Rate 185 ml/min (>60); GFR (African American) 224 ML/MIN (>60); Glucose 92 mg/dL (74-106); HDL Cholesterol 49 mg/dL (27-67); LDL Cholesterol 69 mg/dL (0-130); Potassium 4.5 mmoL/L (3.5-5.1); Sodium 138 mmol/L (136-145); Total Protein,Serum 7.1 gm/dL (6.4-8.2); Triglycerides 52 mg/dL (30-200); VLDL Cholesterol 10 mg/dL (0-40)
== END ==
PROVIDERS: Visit Provider Internal Medicine Cardiovascular Disease
DX: E78.2 Mixed hyperlipidemia (principal); I10 Essential (primary) hypertension; I25.10 Atherosclerotic heart disease of native coronary artery without angina pectoris; I48.91 Unspecified atrial fibrillation; I11.9 Hypertensive heart disease without heart failure
CPT/HCPCS: 36415; 80048; 80061; 80076

== ENCOUNTER 2019-08-10 13:27 | Inpatient (IN) | payer MEDICARE, MEDICAID, SELFPAY ==
[2019-08-10] VITALS (36 sets, daily range): BP systolic 94–164; BP diastolic 44–85; PULSE 61–110; RESP 16–20; TEMP 36.3–37.1; O2SAT 92–100; BMI 21.9; BMI 19.4
--- NOTE | 2019-08-10 13:25 | ECG_ITS ---
APPROVED REPORT Exam: Resting ECG HR:79 bpm ECG Measurements Heart Rate 79 AXES NC 174 P 76 QRSd 80 QRS 18 QT 386 T 36 QTc 442 <Conclusion> Sinus rhythm with premature atrial complexes with aberrant conduction Late R-wave progression, unchanged since 2018 Abnormal ECG Electronically signed by : Kishore Kelley, 08/14/2019 12:05:20
--- NOTE | 2019-08-10 13:33 | XR_ITS ---
PROCEDURE: XR CHEST PORTABLE CLINICAL HISTORY: pain COMPARISON: CXR CHEST(2 VIEWS-NOT PORTABLE) from 04/30/2015 CXR CHEST(2 VIEWS-NOT PORTABLE) from 10/16/2016 XR CHEST PORTABLE from 12/20/2018 FINDINGS: Lower thoracic scoliosis is noted. Lung rahman, cardiac silhouette, and the soft tissues are unremarkable. IMPRESSION: Lower thoracic scoliosis, clear lung rahman Dictated by: Hermann Terrazas 08/10/2019 14:08 Electronically signed by Hermann Terrazas in [place] 08/10/2019 14:08
--- NOTE | 2019-08-10 13:38 | HMH.EDGENADL ---
ED Disposition Clinical Impression: Blood loss anemia, Occult blood positive stool, Prostatic hypertrophy, Bladder distention, Near syncope, Generalized abdominal pain, Chest pain, precordial Disposition: Admitted As Inpatient Condition on Discharge: Fair - Critical Care Critical Care Time: Yes Attestation: On 08/10/19, the high probability of a clinically significant, sudden or life threatening deterioration of the following system(s) required my full and direct attention, intervention and personal management. The time I documented below is in addition to time spent performing reported procedures but includes the following listed in this critical care notation. Total Critical Care Time: 40 Vital system(s) involved:: Circulatory Failure My critical care processes included: Assessment & monitoring of V/S, Initial and Re-exams, Data Review/Interpretation, Coordinating Care, Medication Orders and management, Documentation Medical Decision Making - Medical Records Medical records reviewed: Yes: I reviewed the patient's medical records. - Dwayne Inquiry Pt receiving controlled substance: No Vital Signs: 08/10/19 13:27 08/10/19 13:57 08/10/19 14:27 Temperature 98.1 F Temperature Source Oral Pulse Rate Pulse Rate [Radial] 74 74 69 Respiratory Rate 18 18 17 Blood Pressure Blood Pressure [Right Arm] 138/65 125/70 138/68 Blood Pressure Mean [Right Arm] 89 88 91 Blood Pressure Source [Right Arm] Automatic Cuff Automatic Cuff Automatic Cuff Blood Pressure Position [Right Arm] Sitting Sitting Sitting 02 Sat by Pulse Oximetry 100 100 100 Oxygen Delivery Method Room Air Room Air Room Air 08/10/19 14:30 08/10/19 15:10 08/10/19 15:30 Temperature Temperature Source Pulse Rate Pulse Rate [Radial] 69 75 75 Respiratory Rate 20 20 20 Blood Pressure Blood Pressure [Right Arm] 122/71 142/77 H 127/68 Blood Pressure Mean [Right Arm] 88 98 87 Blood Pressure Source [Right Arm] Automatic Cuff Automatic Cuff Automatic Cuff Blood Pressure Position [Right Arm] Supine Supine Supine 02 Sat by Pulse Oximetry 100 99 Oxygen Delivery Method Room Air Room Air 08/10/19 16:00 08/10/19 17:07 Temperature 98.2 F Temperature Source Pulse Rate 80 Pulse Rate [Radial] 70 Respiratory Rate 20 20 Blood Pressure 123/85 Blood Pressure [Right Arm] 131/71 Blood Pressure Mean [Right Arm] 91 Blood Pressure Source [Right Arm] Automatic Cuff Blood Pressure Position [Right Arm] Supine 02 Sat by Pulse Oximetry 100 Oxygen Delivery Method Room Air - Lab Data Lab results reviewed: Yes: I reviewed the patient's lab results. Lab Results 08/10/19 13:30: WBC 6.7, RBC 2.37 L, Hgb 5.1 L*, Hct 17.4 L*, MCV 73.2 L, MCH 21.6 L, MCHC 29.5 L, RDW 15.3, Plt Count 488 H, MPV 7.5, Neut % (Auto) 78.2, Lymph % (Auto) 15.5, [place] % (Auto) 4.8, Eos % (Auto) 1.1, Baso % (Auto) 0.4, Neut # (Auto) 5.3, Lymph # (Auto) 1.0, [place] # (Auto) 0.3, Eos # (Auto) 0.1, Baso # (Auto) 0.0 08/10/19 13:30: Sodium 136, Potassium 4.3, Chloride 106, Carbon Dioxide 20 L, Anion Gap 14.3, BUN 26 H, Creatinine 1.20, Estimated Creat Clear 43, Estimated GFR 58 L, Est GFR ( Amer) 70, Glucose 101 H, Calcium 9.2, Total Bilirubin 0.4, AST 21, ALT 10 L, Alkaline Phosphatase 60, Troponin I < 0.01, Total Protein 7.0, Albumin 4.1, Globulin 2.9, Albumin/Globulin Ratio 1.4 08/10/19 13:30: Amylase 42, TSH 5.53 H 08/10/19 13:30: Lipase 31 08/10/19 13:30: Iron 19 L, Ferritin 6.37 L 08/10/19 14:05: Stool Occult Blood Positive A 08/10/19 14:28: Blood Type O Positive, Antibody Screen Negative, Crossmatch (AHG) See Detail 08/10/19 14:54: Urine Color Yellow, Urine Appearance Clear, Urine pH 7.0, Ur Specific [place] 1.015, Urine Protein Negative, Urine Glucose (UA) Negative, Urine Ketones Negative, Urine Blood Negative, Urine Nitrate Negative, Urine Bilirubin Negative, Urine Urobilinogen 0.2, Ur Leukocyte Esterase Negative, Urine RBC Occasional, Urine WBC Occasional, Ur Squamous Epith C
[2019-08-10 13:48] LABS: Chloride 106 mmol/L (98-107)
[2019-08-10 13:49] LABS: Potassium 4.3 mmoL/L (3.5-5.1); Sodium 136 mmol/L (136-145)
[2019-08-10 13:51] LABS: Alanine Aminotransferase 10 U/L (12-78); Alkaline Phosphatase 60 U/L (38-126); Anion Gap 14.3 mEq/L (5-15); Aspartate Amino Transferase 21 U/L (17-59); Bilirubin,Total 0.4 mg/dl (0.2-1.3); Blood Urea Nitrogen 26 mg/dl (9-20); Carbon Dioxide 20 mmol/L (22.0-30.0); Creatinine Clearance Estimated 43 mL/min (50-200); Estimated Glomerular Filt Rate 58 ml/min (>60); GFR (African American) 70 ML/MIN (>60)
[2019-08-10 13:52] LABS: Albumin Level 4.1 g/dl (3.5-5.0); Albumin/Globulin Ratio 1.4 (1.1-1.8); Calcium 9.2 mg/dl (8.4-10.2); Globulin 2.9 g/dL (1.3-3.2); Glucose 101 mg/dl (74-100)
[2019-08-10 13:54] LABS: Eosinophils # 0.1 K/mm3 (0.0-0.4); Lymphocytes % 15.5 % (10-50); Monocytes # 0.3 K/mm3 (0.1-1.0)
[2019-08-10 13:58] LABS: Basophils % 0.4 % (0.1-2.0); Eosinophils % 1.1 % (0.1-12.0); Mean Corpuscular HGB Conc 29.5 g/dL (31.8-35.4); Mean Corpuscular Hemoglobin 21.6 pg (27.0-31.2); Mean Corpuscular Volume 73.2 fl (80-94); Mean Platelet Volume 7.5 fl (7.4-10.4); Monocytes % 4.8 % (1.7-9.3); Neutrophils # 5.3 K/mm3 (1.8-7.8); Neutrophils % 78.2 % (37.0-80.0); Platelet Count 488 K/mm3 (142-424); Red Blood Count 2.37 M/mm3 (4.60-6.20); Red Cell Distribution Width 15.3 % (11.5-17.5); White Blood Count 6.7 K/mm3 (4.8-10.8)
[2019-08-10 13:59] LABS: Hematocrit 17.4 % (42.0-52.0); Hemoglobin 5.1 g/dL (14.1-18.0)
--- NOTE | 2019-08-10 13:59 | PC.NURSE ---
notified of Hgb of 5.1 and Hct of 17.4.
[2019-08-10 14:07] LABS: Troponin I < 0.01 ng/ml (0.00-0.034)
--- NOTE | 2019-08-10 14:14 | CT_ITS ---
PROCEDURE: CT ABDOMEN PELVIS W CON CLINICAL INDICATION: abdo pain COMPARISON: CT ABDOMEN PELVIS WO CON from 12/20/2018 TECHNIQUE: IV Contrast: 75ML OPTIRAY 350 Oral Contrast None Axial images obtained with sagittal and coronal reformats. All CT scans at the facility use one or more dose reduction, viz: automated exposure control, ma/kV adjustment per patient size (including targeted exams where dose is matched to indication, i.e. head), or iterative reconstruction technique. FINDINGS: CT scan of the abdomen with contrast: The lung bases are clear. There are scattered splenic calcifications. There is a small hiatal hernia. The liver is unremarkable. Gallbladder, adrenal glands, pancreas, kidneys, aorta, small and large bowel is unremarkable. Cecal sutures are demonstrated. Appendix is not visualized. Soft tissues are unremarkable. There is degenerative lumbar scoliosis. CT scan of the pelvis with contrast: The bladder is distended and a grossly enlarged heterogeneous prostate is again demonstrated measuring 73 millimeters x 76 millimeters. Seminal vessels are not demonstrated. Soft tissues and the bony structures are unremarkable. IMPRESSION: Gross prostatic hypertrophy, distended bladder, cannot rule out bladder outlet obstruction Dictated by: Hermann Terrazas 08/10/2019 15:23 Electronically signed by Hermann Terrazas in [place] 08/10/2019 15:23
[2019-08-10 14:22] LABS: Amylase 42 U/L (30-110)
[2019-08-10 14:23] LABS: Lipase 31 U/L (23-300)
[2019-08-10 14:53] LABS: Thyroid Stimulating Hormone 5.53 uIU/mL (0.465-4.68)
[2019-08-10 14:56] LABS: Microscopic, Urine URINE MICROSCOPIC (MICROSCOPIC)
[2019-08-10 14:57] LABS: Appearance,Urine CLEAR (Clear); Bilirubin,Urine Negative (Negative); Blood, Urine Negative (Negative); Color,Urine YELLOW (Yellow); Glucose,Urine (UA) Negative (Negative); Ketones,Urine Negative (Negative); Leukocyte Esterase,Urine Negative (Negative); Nitrate,Urine Negative (Negative); Protein,Urine Negative (Negative); Specific Gravity, Urine 1.015 (1.005-1.030); Urobilinogen,Urine 0.2 EU/dl (0.2)
[2019-08-10 14:59] LABS: Occult Blood,Stool Positive (Negative)
[2019-08-10 15:12] LABS: Bacteria,Urine Trace /lpf; RBC,Urine Occasional #/hpf (0-3); Squamous Epithelial Cell,Urine Occasional #/hpf (0-5); WBC,Urine Occasional #/hpf (0-3)
--- NOTE | 2019-08-10 15:41 | PC.NURSE ---
Dr. Sunny parker. (automotive parts counter person for [facility])
--- NOTE | 2019-08-10 16:01 | PC.NURSE ---
DR SALGUERO JUST SPOKE WITH DR MALKI WHICH IS COVERING FOR DR FERREIRA HE HAS AGREED TO ADMIT
--- NOTE | 2019-08-10 16:08 | PC.NURSE ---
Unable to obtain med list at this time. patient states he does not know what he takes at home and we will have to wait until his girl gets here.
[2019-08-10 16:16] LABS: Iron 19 ug/dL (49-181)
--- NOTE | 2019-08-10 16:28 | PC.NURSE ---
Report called to GABY Langston.
[2019-08-10 16:52] LABS: Ferritin 6.37 ng/ml (17.9-464)
[2019-08-10 17:17] LABS: Troponin I < 0.01 ng/ml (0.00-0.034)
--- NOTE | 2019-08-10 20:14 | PC.NURSE ---
Pt alert and oriented to person, place, and situation. RR even and unlabored. NAD. Skin is jaundiced. Lungs cta. Have transfused x 1 unit of blood and pt tolerated well. Lasix administered per apr. Have been unable to complete med req r/t pt being unsure of what medications he takes daily. Have made oncoming staff aware of this as well. CB in reach. Pt's only c/o at this time is being cold. Warm blankets applied. Remains afebrile and vss at this time.
[2019-08-10 20:42] LABS: Troponin I < 0.01 ng/ml (0.00-0.034)
--- NOTE | 2019-08-10 23:54 | PC.NURSE ---
URINE NOTED AT THIS TIME YELLOW AND CLEAR, VOIDED PER URINAL.
[2019-08-11] VITALS (14 sets, daily range): BP systolic 96–142; BP diastolic 56–83; PULSE 60–86; RESP 15–18; TEMP 36.5–37.1; O2SAT 98–100; BMI 19.1
[2019-08-11 03:38] LABS: Hematocrit 30.2 % (42.0-52.0)
--- NOTE | 2019-08-11 03:44 | PC.NURSE ---
A&OX3, UNAWARE OF TIME. PT TOLERATED BLOOD TRANSFUSION OF 4 UNITS WELL WITH NO ADVERSE REACTIONS. TOLERATES RA WELL, NO C/O SOA. BILATERAL LUNGS NOTED CLEAR T/O UPON AUSCULTATION. TOLERATED LASIX WELL THAT WAS ADMINISTERED AT BEGINNING OF SHIFT. ADEQUATE URINE OUTPUT NOTED. URINE NOTED CLEAR AND PALE YELLOW IN COLOR. INDEPENDENT USE OF URINAL AT BEDSIDE. TOLERATES AMB WELL TO AND FROM BATHROOM WITH STAFF STANDBY ASSIST. MULTIPLE BM NOTED T/O SHIFT. SINUS ARRHYTHMIA NOTED ON SOAP TENDER. NO EDEMA NOTED. VSS. REMAINS SAFE. CALL LIGHT WITHIN REACH. WILL CONTINUE TO MONITOR.
[2019-08-11 06:43] LABS: Basophils % 0.4 % (0.1-2.0); Eosinophils # 0.2 K/mm3 (0.0-0.4); Eosinophils % 3.2 % (0.1-12.0); Hematocrit 30.6 % (42.0-52.0); Hemoglobin 9.9 g/dL (14.1-18.0); Lymphocytes # 1.1 K/mm3 (0.7-4.5); Lymphocytes % 20.1 % (10-50); Mean Corpuscular HGB Conc 32.3 g/dL (31.8-35.4); Mean Corpuscular Hemoglobin 25.1 pg (27.0-31.2); Mean Corpuscular Volume 77.8 fl (80-94); Mean Platelet Volume 8.4 fl (7.4-10.4); Monocytes # 0.4 K/mm3 (0.1-1.0); Monocytes % 7.2 % (1.7-9.3); Neutrophils # 3.7 K/mm3 (1.8-7.8); Neutrophils % 69.2 % (37.0-80.0); Platelet Count 364 K/mm3 (142-424); Red Blood Count 3.93 M/mm3 (4.60-6.20); Red Cell Distribution Width 16.5 % (11.5-17.5); White Blood Count 5.4 K/mm3 (4.8-10.8)
--- NOTE | 2019-08-11 07:02 | P.CONPHA_ITS ---
[facility] Pharmacy VTE Monitoring - Patient Demographics Admission date: 08/10/19 Report Date: 08/11/19 Time: 07:02 Allergies/Adverse Reactions: Patient Allergies No Known Allergies Allergy (Verified 08/08/19 09:38) Height: 1.7 m Weight: 55.423 kg Patient Problems: Current Active Problems (Last Updated 11/01/18 @ 10:35 by Bettye Zeng RN) Blood loss anemia (Acute) Occult blood positive stool (Acute) Prostatic hypertrophy (Acute) Bladder distention (Acute) Near syncope (Acute) Generalized abdominal pain (Acute) Chest pain, precordial (Acute) - VTE Risk Labs: VTE Related Lab Results Hgb 9.9 g/dL (14.1-18.0) L 08/11/19 05:57 Hct 30.6 % (42.0-52.0) L 08/11/19 05:57 Plt Count 364 K/mm3 (142-424) D 08/11/19 05:57 BUN 26 mg/dl (9-20) H 08/10/19 13:30 Creatinine 1.20 mg/dl (0.66-1.25) 08/10/19 13:30 Estimated Creat Clear 43 mL/min (50-200) 08/10/19 13:30 - Prophylaxis VTE Prophylaxis Ordered?: Yes Types of VTE Prophylaxis: TEDS Knee High Location of Applied Device: Bilateral Lower Extremeties - VTE Diagnosis Confirmed Treatment or plan recommended: Continue Current Treatment
--- NOTE | 2019-08-11 07:15 | HMH.PHAINT ---
MEDICATION RECONCILIATION COMPLETED ON PATIENT USING EXTERNAL FILL HISTORY FROM PHARMACY. -BERYL YANEZ, JUAN MIGUELD
--- NOTE | 2019-08-11 08:56 | HMH.HPDC ---
General - General Admission date:: 08/10/19 Discharge date: 08/11/19 *Admission Date: 08/10/19 *Chief complaint: anemia *History of present illness: This patient presented to the ER on 625 with complaints of near syncope and generalized weakness.1 week history of abdominal discomfort. States that it is associated with a burning in his chest and dyspnea on exertion. Today while shaving he had a near syncopal episode. Denies vomiting or diarrhea. No hematemesis, melena, hematochezia. No fever. His initial hemoglobin was measured at 5.1, iron was low at 19. He was Hemoccult positive. Imaging studies included a chest x-ray which was unremarkable, a CT of the abdomen which showed a distended bladder, increased prostate size, liver was grossly clear. No overt bowel lesions were demonstrated, specifically no diverticular changes. Patient does have an old vertical midline incision from a remote surgery, he cannot provide specific details. Patient did notice some overt bleeding on the tissue, no hematemesis, no coffee-ground emesis. He did become near syncopal while shaving, shortly before his presentation to the ER. He was transfused 4 units of red cells overnight. Patient is followed by cardiology at [facility]. Plavix is on board post stent deployment. Xarelto is on board for paroxysmal atrial fibrillation. He was most recently seen by cardiology services on , shortly before presenting for the bleed. We will be contacting cardiology services for their recommendations on continuing or stopping these agents. He is in normal sinus rhythm today [facility] History I have reviewed the patient's past medical history: Yes Medical History: Reports:: Atrial Fibrillation, Coronary Artery Disease, Gastroesophageal Reflux Disease(GERD), Hyperlipidemia, Hypertension Denies:: Diabetes Mellitus Type 1, Diabetes Mellitus Type 2, Internal Pacemaker, Seizures *Have you ever received a pneumonia vaccine?: No *Have you received a flu vaccine this season?: No Other Medical History: Reports: Anemia, Arthritis, Hypothyroidism, Thyroid Disease Other Surgeries: Yes: Cardiac Catheterization, Colon Resection, Coronary Stent, Hernia Repair, Other. No: Pacemaker Amputation: No Fractures: No - *Social History Educational Level: Completed High School Smoking Status: Light tobacco smoker Tobacco Type: cigarettes # Packs/Day (cigarettes): 1 #Yrs smoked (if former smoker): 20 Alcohol Intake: never Substance Use Type: denies use *Occupational Status:: retired Housing: house Household Members: none *Travel in the last 8 weeks: None Family Hx:: Cancer Review of Systems - Review of Systems Review of systems:: pertinent systems reviewed and negative unless documented below - Constitutional Denies fever(s) - Eyes Denies change in vision - *Cardiovascular Denies chest pain - *Respiratory Reports shortness of breath - *Gastrointestinal Reports bright, red blood in stools, Denies coffee ground vomit - *Genitourinary Denies blood in urine - *Musculoskeletal Denies joint pain - Integumentary/Breasts Denies rash Exam Vital signs and Labs for Last 24 Hours: Temp Pulse Resp BP Pulse Ox 98.4 F 86 18 96/56 L 100 08/11/19 08:00 08/11/19 08:00 08/11/19 08:00 08/11/19 08:00 08/11/19 08:00 Laboratory Results - last 24 hr 08/10/19 13:30: WBC 6.7, RBC 2.37 L, Hgb 5.1 L*, Hct 17.4 L*, MCV 73.2 L, MCH 21.6 L, MCHC 29.5 L, RDW 15.3, Plt Count 488 H, MPV 7.5, Neut % (Auto) 78.2, Lymph % (Auto) 15.5, [place] % (Auto) 4.8, Eos % (Auto) 1.1, Baso % (Auto) 0.4, Neut # (Auto) 5.3, Lymph # (Auto) 1.0, [place] # (Auto) 0.3, Eos # (Auto) 0.1, Baso # (Auto) 0.0 08/10/19 13:30: Sodium 136, Potassium 4.3, Chloride 106, Carbon Dioxide 20 L, Anion Gap 14.3, BUN 26 H, Creatinine 1.20, Estimated Creat Clear 43, Estimated GFR 58 L, Est GFR ( Amer) 70, Glucose 101 H, Calcium 9.2, Total Bilirubin 0.4, AST 21, ALT 10 L, Alkaline Phosphatase 60, Troponin I
--- NOTE | 2019-08-11 10:02 | HMH.PHAINT ---
DISCHARGE COUNSELING COMPLETED ON PATIENT. PATIENT IS TO STOP PLAVIX AND XARELTO PER CARDIOLOGY. CONTINUING ALL OTHER HOME MEDICATIONS. FOLLOW UP WITH CARDIOLOGY AND PRIMARY CARE NEXT WEDNESDAY. PATIENT VERBALIZED UNDERSTANDING AND HAD NO QUESTIONS AT THIS TIME. -BERYL YANEZ, JUAN MIGUELD
== END 2019-08-11 10:25 | disposition home or self-care (01) | DRG 812 ==
LOC: ER 16:05 → 2ND 17:29
PROVIDERS: Admitting Provider Family Medicine; Emergency Provider Emergency Medicine; PCP Emergency Medicine; Visit Provider Emergency Medicine
DX: D64.9 Anemia, unspecified (principal); I48.20 Chronic atrial fibrillation, unspecified; I25.10 Atherosclerotic heart disease of native coronary artery without angina pectoris; I10 Essential (primary) hypertension; E78.5 Hyperlipidemia, unspecified; Z95.5 Presence of coronary angioplasty implant and graft; N40.0 Benign prostatic hyperplasia without lower urinary tract symptoms; E03.9 Hypothyroidism, unspecified; Z72.0 Tobacco use; Z79.899 Other long term (current) drug therapy
CPT/HCPCS: 36415; 71045; 74177; 80053; 81001; 82150; 82272; 82728; 83540; 83690; 84443; 84484; 85014; 85018; 85025; 86850; 93005; 99285; G0328; P9016; Q9967

== ENCOUNTER → 2019-08-15 10:01 | Outpatient (CLI) | payer MEDICARE, MEDICAID, SELFPAY ==
[2019-08-15 10:49] LABS: Basophils # 0.1 K/mm3 (0-0.2); Basophils % 0.6 % (0.1-2.0); Eosinophils # 0.1 K/mm3 (0.0-0.4); Eosinophils % 1.7 % (0.1-12.0); Hemoglobin 10.8 g/dL (14.1-18.0); Lymphocytes # 0.9 K/mm3 (0.7-4.5); Lymphocytes % 11.5 % (10-50); Mean Corpuscular HGB Conc 31.7 g/dL (31.8-35.4); Mean Corpuscular Hemoglobin 25.1 pg (27.0-31.2); Mean Corpuscular Volume 79.2 fl (80-94); Monocytes # 0.5 K/mm3 (0.1-1.0); Monocytes % 6.8 % (1.7-9.3); Neutrophils % 79.3 % (37.0-80.0); Platelet Count 406 K/mm3 (142-424); Red Cell Distribution Width 17.2 % (11.5-17.5); White Blood Count 7.5 K/mm3 (4.8-10.8)
[2019-08-15 11:12] LABS: Chloride 104 mmol/L (98-107); Sodium 136 mmol/L (136-145)
[2019-08-15 11:13] LABS: Potassium 4.6 mmoL/L (3.5-5.1)
[2019-08-15 11:16] LABS: Anion Gap 10.6 mEq/L (5-15); Blood Urea Nitrogen 23 mg/dl (9-20); Calcium 9.4 mg/dl (8.4-10.2); Carbon Dioxide 26 mmol/L (22.0-30.0); Estimated Glomerular Filt Rate 58 ml/min (>60); GFR (African American) 70 ML/MIN (>60); Glucose 92 mg/dl (74-100)
== END ==
PROVIDERS: Visit Provider Nurse Practitioner Family
DX: D50.0 Iron deficiency anemia secondary to blood loss (chronic) (principal); E78.2 Mixed hyperlipidemia; I10 Essential (primary) hypertension; I25.10 Atherosclerotic heart disease of native coronary artery without angina pectoris; I48.0 Paroxysmal atrial fibrillation; K21.9 Gastro-esophageal reflux disease without esophagitis; R06.00 Dyspnea, unspecified
CPT/HCPCS: 36415; 80048; 85025

== ENCOUNTER → 2019-09-14 16:58 | Outpatient (CLI) | payer MEDICARE, MEDICAID, SELFPAY ==
[2019-09-14 17:43] LABS: Basophils % 0.5 % (0.1-2.0); Eosinophils # 0.2 K/mm3 (0.0-0.4); Eosinophils % 2.9 % (0.1-12.0); Hematocrit 35.4 % (42.0-52.0); Hemoglobin 11.5 g/dL (14.1-18.0); Lymphocytes # 1.4 K/mm3 (0.7-4.5); Mean Corpuscular HGB Conc 32.4 g/dL (31.8-35.4); Mean Corpuscular Hemoglobin 25.6 pg (27.0-31.2); Monocytes # 0.3 K/mm3 (0.1-1.0); Monocytes % 5.2 % (1.7-9.3); Neutrophils % 68.4 % (37.0-80.0); Platelet Count 320 K/mm3 (142-424); Red Blood Count 4.48 M/mm3 (4.60-6.20); Red Cell Distribution Width 18.6 % (11.5-17.5); White Blood Count 5.9 K/mm3 (4.8-10.8)
[2019-09-14 18:05] LABS: Alanine Aminotransferase 9 U/L (12-78); Albumin Level 4.4 g/dl (3.5-5.0); Albumin/Globulin Ratio 1.4 (1.1-1.8); Alkaline Phosphatase 93 U/L (38-126); Aspartate Amino Transferase 27 U/L (17-59); Bilirubin,Total 0.5 mg/dl (0.2-1.3); Blood Urea Nitrogen 19 mg/dl (9-20); Calcium 9.9 mg/dl (8.4-10.2); Carbon Dioxide 27 mmol/L (22.0-30.0); Chloride 101 mmol/L (98-107); Estimated Glomerular Filt Rate 58 ml/min (>60); GFR (African American) 70 ML/MIN (>60); Globulin 3.1 g/dL (1.3-3.2); Glucose 98 mg/dl (74-100); HDL Cholesterol 50 mg/dl (40-60); Sodium 139 mmol/L (136-145); Total Protein,Serum 7.5 g/dl (6.3-8.2)
[2019-09-14 18:16] LABS: Direct LDL Cholesterol 62.22 mg/dL (100-129)
[2019-09-14 18:22] LABS: T4 (Thyroxine) 10.7 ug/dl (5.53-11.0)
[2019-09-14 18:36] LABS: Thyroid Stimulating Hormone 5.23 uIU/mL (0.465-4.68)
[2019-09-14 18:52] LABS: Chol/HDL Ratio 2.6 (1-3.5); Cholesterol 128 mg/dl (140-200); Triglycerides 160 mg/dl (30-150); VLDL Cholesterol 32 mg/dL (0-40)
== END ==
PROVIDERS: Visit Provider Nurse Practitioner Family
DX: D64.9 Anemia, unspecified (principal); R00.0 Tachycardia, unspecified; R53.83 Other fatigue; R79.89 Other specified abnormal findings of blood chemistry
CPT/HCPCS: 80053; 80061; 84436; 84443; 85025

== ENCOUNTER → 2019-09-15 13:38 | Outpatient (CLI) | payer MEDICARE, MEDICAID, SELFPAY ==
--- NOTE | 2019-09-15 13:42 | CA_ITS ---
APPROVED REPORT EXAM: Comprehensive 2D, Doppler, and color-flow Echocardiogram Electronic Scanner Operator: Jacklyn Yi RT(R) Ht: 5 ft 8 in Wt: 123lbs BSA: 1.66 BP: 140/86 mmHg Indications: SOA, AF, CAD, smoker, AFLARO 2D Dimensions LVOT 2.02 cm (M/F) 1.5-2.5 M-Mode Dimensions RVDd 2.68 cm (0.9-2.6) LVDd 3.79 cm (3.5-5.7) LVDs 2.86 cm (3.5-5.7) IVSd 0.93 cm (0.6-1.1) PWd 0.86 cm (0.6-1.1) EF (Teich) 49.50% FS 24.50% EDV (Teich) 61.60 mL ESV (Teich) 31.10 mL LV Diastology E/A Ratio 0.82 Mitral Valve MV A Velocity 61.00 (40-130 cm/s) Left Ventricle Left atrium is mildly enlarged, left ventricle is normal size, mild concentric left ventricular hypertrophy, visually estimated ejection fraction 45%, with no regional wall motion abnormality. Diastolic parameters are inconclusive. Right Ventricle Right atrium and right ventricle are mildly enlarged with normal contractility. Aortic Valve Aortic valve is thickened and calcified without aortic stenosis or aortic insufficiency. Mitral Valve Mitral valve leaflets are minimally thickened, there is mild mitral regurgitation. Tricuspid Valve Tricuspid valve is grossly normal, there is mild tricuspid regurgitation. Pulmonic Valve Pulmonic valve is poorly visualized. Great Vessels Aortic root is normal size. Pericardium No significant pericardial effusion noted. Conclusion 1. Mild biatrial enlargement, normal left ventricular size, mild concentric left ventricular hypertrophy, visually estimated ejection fraction 45% with no regional wall motion abnormality, diastolic parameters are inconclusive. 2. Thickened and calcified aortic valve without aortic stenosis aortic insufficiency. 3. Mildly enlarged right ventricle with normal contractility. 4. Mild mitral and tricuspid regurgitation. 5. No significant pericardial effusion noted. Electronically signed by : Sampson Duarte, 09/15/2019 15:08:01
== END ==
PROVIDERS: PCP Emergency Medicine; Visit Provider Urology
DX: I48.0 Paroxysmal atrial fibrillation (principal)
CPT/HCPCS: 93306

== ENCOUNTER → 2021-06-19 10:26 | Outpatient (CLI) | payer MEDICARE, MEDICAID, SELFPAY ==
[2021-06-19 10:49] LABS: Basophils # 0.1 K/mm3 (0-0.2); Basophils % 1.5 % (0.1-2.0); Eosinophils # 0.2 K/mm3 (0.0-0.4); Eosinophils % 2.4 % (0.1-12.0); Hematocrit 37.8 % (42.0-52.0); Hemoglobin 12.6 g/dL (14.1-18.0); Lymphocytes # 1.5 K/mm3 (0.7-4.5); Lymphocytes % 18.1 % (10-50); Mean Corpuscular HGB Conc 33.4 g/dL (31.8-35.4); Mean Corpuscular Hemoglobin 29.2 pg (27.0-31.2); Mean Corpuscular Volume 87.3 fl (80-94); Mean Platelet Volume 8.1 fl (7.4-10.4); Monocytes # 0.5 K/mm3 (0.1-1.0); Monocytes % 5.6 % (1.7-9.3); Neutrophils # 5.9 K/mm3 (1.8-7.8); Neutrophils % 72.4 % (37.0-80.0); Platelet Count 366 K/mm3 (142-424); Red Blood Count 4.33 M/mm3 (4.60-6.20); Red Cell Distribution Width 14.9 % (11.5-17.5); White Blood Count 8.1 K/mm3 (4.8-10.8)
[2021-06-19 10:55] LABS: Alanine Aminotransferase 40 U/L (12-78); Albumin Level 4.5 g/dl (3.5-5.0); Alkaline Phosphatase 437 U/L (38-126); Anion Gap 13.5 mEq/L (5-15); Aspartate Amino Transferase 61 U/L (17-59); Bilirubin,Direct 0.2 mg/dl (0.0-0.4); Bilirubin,Indirect 0.7 mg/dL (0.0-0.9); Bilirubin,Total 0.9 mg/dl (0.2-1.3); Bilirubin,Unconjugated 0.7 mg/dL (0.0-1.1); Blood Urea Nitrogen 21 mg/dl (9-20); Calcium 9.8 mg/dl (8.4-10.2); Carbon Dioxide 26 mmol/L (22.0-30.0); Chloride 103 mmol/L (98-107); Cholesterol 176 mg/dl (140-200); Estimated Glomerular Filt Rate 58 ml/min (>60); GFR (African American) 70 ML/MIN (>60); Glucose 130 mg/dl (74-100); HDL Cholesterol 59 mg/dl (40-60); Magnesium 1.9 mg/dl (1.6-2.3); Potassium 4.5 mmoL/L (3.5-5.1); Sodium 138 mmol/L (136-145); Triglycerides 139 mg/dl (30-150); VLDL Cholesterol 28 mg/dL (0-40)
[2021-06-19 11:07] LABS: Direct LDL Cholesterol 63.35 mg/dL (100-129)
[2021-06-19 11:25] LABS: Thyroid Stimulating Hormone 3.08 uIU/mL (0.465-4.68)
[2021-06-19 12:12] LABS: Free T4 (Free Thyroxine) 1.47 ng/dl (0.78-2.19)
== END ==
PROVIDERS: Visit Provider Nurse Practitioner
DX: E78.2 Mixed hyperlipidemia (principal); I10 Essential (primary) hypertension; I25.10 Atherosclerotic heart disease of native coronary artery without angina pectoris; R00.0 Tachycardia, unspecified
CPT/HCPCS: 36415; 80048; 80061; 80076; 83735; 84439; 84443; 85025

== ENCOUNTER → 2021-09-18 18:49 | Outpatient (CLI) | payer MEDICARE, MEDICAID, SELFPAY ==
[2021-09-18 19:42] LABS: Basophils # 0.1 K/mm3 (0-0.2); Basophils % 0.9 % (0.1-2.0); Eosinophils # 0.3 K/mm3 (0.0-0.4); Hematocrit 35.2 % (42.0-52.0); Hemoglobin 11.1 g/dL (14.1-18.0); Lymphocytes # 1.7 K/mm3 (0.7-4.5); Lymphocytes % 27.1 % (10-50); Mean Corpuscular HGB Conc 31.7 g/dL (31.8-35.4); Mean Corpuscular Hemoglobin 27.7 pg (27.0-31.2); Mean Corpuscular Volume 87.5 fl (80-94); Mean Platelet Volume 9.2 fl (7.4-10.4); Monocytes # 0.5 K/mm3 (0.1-1.0); Monocytes % 7.8 % (1.7-9.3); Neutrophils # 3.8 K/mm3 (1.8-7.8); Neutrophils % 60.2 % (37.0-80.0); Platelet Count 342 K/mm3 (142-424); Red Blood Count 4.02 M/mm3 (4.60-6.20); Red Cell Distribution Width 15.5 % (11.5-17.5); White Blood Count 6.3 K/mm3 (4.8-10.8)
[2021-09-18 19:47] LABS: Albumin Level 3.7 g/dl (3.5-5.0); Albumin/Globulin Ratio 1.3 (1.1-1.8); Alkaline Phosphatase 360 U/L (38-126); Blood Urea Nitrogen 28 mg/dl (9-20); Carbon Dioxide 24 mmol/L (22.0-30.0); Chloride 103 mmol/L (98-107); Chol/HDL Ratio 3.1 (1-3.5); Cholesterol 122 mg/dl (140-200); Estimated Glomerular Filt Rate 53 ml/min (>60); GFR (African American) 64 ML/MIN (>60); Globulin 2.8 g/dL (1.3-3.2); Glucose 96 mg/dl (74-100); HDL Cholesterol 39 mg/dl (40-60); Sodium 137 mmol/L (136-145); Total Protein,Serum 6.5 g/dl (6.3-8.2); Triglycerides 100 mg/dl (30-150); VLDL Cholesterol 20 mg/dL (0-40)
[2021-09-18 20:01] LABS: Alanine Aminotransferase 25 U/L (12-78); Aspartate Amino Transferase 40 U/L (17-59)
[2021-09-18 20:17] LABS: Prostate Specific Ag Screen 21.9 ng/ml (0.0-4.0)
[2021-09-18 20:18] LABS: Thyroid Stimulating Hormone 3.05 uIU/mL (0.465-4.68)
[2021-09-19 06:48] LABS: Bilirubin,Total 0.1 mg/dl (0.2-1.3)
[2021-09-20 08:35] LABS: Direct LDL Cholesterol 57 mg/dL (100-129)
== END ==
PROVIDERS: PCP Physician Assistant; Visit Provider Physician Assistant
DX: R00.0 Tachycardia, unspecified (principal); R79.89 Other specified abnormal findings of blood chemistry; Z12.5 Encounter for screening for malignant neoplasm of prostate; R55 Syncope and collapse
CPT/HCPCS: 80053; 80061; 84443; 85025; G0103

== ENCOUNTER 2021-09-25 13:07 | Emergency (ER) | payer MEDICARE, MEDICAID, SELFPAY ==
[2021-09-25] VITALS (9 sets, daily range): BP systolic 96–159; BP diastolic 66–85; PULSE 50–71; RESP 18–20; TEMP 37; O2SAT 93–100; BMI 18.3
[2021-09-25 13:31] LABS: Influenza A, PCR Not Detected (NotDetected); Influenza B, PCR Not Detected (NotDetected)
--- NOTE | 2021-09-25 13:33 | XR_ITS ---
FINAL REPORT CLINICAL HISTORY: COVID + COMPARISON: 08/10/2019 FINDINGS: SINGLE-VIEW CHEST The heart size is normal. The mediastinum is normal. There is mild right base and left mid lung opacities, may represent atelectasis or pneumonia. There is no pneumothorax. IMPRESSION: Atelectasis versus pneumonia. Reviewed, Interpreted and Dictated by Major Mitchell III, MD Transcribed by Wendy Bravo Authenticated and [facility]
--- NOTE | 2021-09-25 13:38 | PC.NURSE ---
Isolation precautions in place on ED room door
[2021-09-25 13:39] LABS: Basophils % 1.1 % (0.1-2.0); Eosinophils % 0.1 % (0.1-12.0); Hematocrit 32.3 % (42.0-52.0); Hemoglobin 10.2 g/dL (14.1-18.0); Lymphocytes # 1.1 K/mm3 (0.7-4.5); Mean Corpuscular HGB Conc 31.5 g/dL (31.8-35.4); Mean Corpuscular Hemoglobin 27.3 pg (27.0-31.2); Mean Corpuscular Volume 86.7 fl (80-94); Mean Platelet Volume 9.3 fl (7.4-10.4); Monocytes # 0.3 K/mm3 (0.1-1.0); Monocytes % 7.4 % (1.7-9.3); Neutrophils # 2.2 K/mm3 (1.8-7.8); Neutrophils % 60.5 % (37.0-80.0); Platelet Count 250 K/mm3 (142-424); Red Blood Count 3.72 M/mm3 (4.60-6.20); Red Cell Distribution Width 15.7 % (11.5-17.5); White Blood Count 3.6 K/mm3 (4.8-10.8)
[2021-09-25 13:42] LABS: Chloride 101 mmol/L (98-107); Sodium 134 mmol/L (136-145)
[2021-09-25 13:43] LABS: Potassium 4.1 mmoL/L (3.5-5.1)
[2021-09-25 13:45] LABS: Alanine Aminotransferase 42 U/L (12-78); Albumin Level 3.9 g/dl (3.5-5.0); Albumin/Globulin Ratio 1.3 (1.1-1.8); Alkaline Phosphatase 388 U/L (38-126); Anion Gap 9.1 mEq/L (5-15); Aspartate Amino Transferase 79 U/L (17-59); Blood Urea Nitrogen 29 mg/dl (9-20); Carbon Dioxide 28 mmol/L (22.0-30.0); Creatinine Clearance Estimated 28 mL/min (50-200); Estimated Glomerular Filt Rate 48 ml/min (>60); GFR (African American) 58 ML/MIN (>60); Total Protein,Serum 6.9 g/dl (6.3-8.2)
[2021-09-25 13:46] LABS: Calcium 8.7 mg/dl (8.4-10.2); Glucose 110 mg/dl (74-100)
[2021-09-25 13:58] LABS: Bilirubin,Total < 0.1 mg/dl (0.2-1.3)
[2021-09-25 13:59] LABS: Coronavirus 19, PCR Detected (NotDetected)
--- NOTE | 2021-09-25 14:00 | PC.NURSE ---
ROUNDED ON PT UPDATED DAUGHTER AND GOT PT A BLANKET
--- NOTE | 2021-09-25 14:48 | HMH.EDGENADL ---
ED Disposition Clinical Impression: COVID-19 virus infection Disposition: Home, Self-Care Condition on Discharge: Good Instructions: DI for COVID-19 (Suspected or Confirmed ) Additional Instructions: Paxlovid as prescribed. Zofran as needed for nausea and vomiting. ADDITIONAL INSTRUCTIONS FOR COVID-19: Rest, drink plenty of fluids. Tylenol or Ibuprofen for fever and/or aches and pains. Monitor your symptoms. IF YOU HAVE AN EMERGENCY WARNING SIGN (INCLUDING TROUBLE BREATHING), SEEK EMERGENCY MEDICAL CARE IMMEDIATELY. COVID-19 Isolation: People with COVID-19 should isolate for 5 days. Then if they are asymptomatic (no symptoms) or their symptoms are resolving (without fever for 24 hours), follow that by 5 days of wearing a mask when around others to minimize the risk of infecting people you encounter. If you test positive for COVID-19 and never develop symptoms, day 0 is the day of your positive viral test (based on the date you were tested) and day 1 is the first full day after your positive test. If you develop symptoms after testing positive, your 5-day isolation period must start over. Day 0 is your first day of symptoms. Day 1 is the first full day after your symptoms developed. What to do: Stay in a separate room from other household members, if possible. Use a separate bathroom, if possible. Avoid contact with other members of the household and pets. Don?t share personal household items, like cups, towels, and utensils. Wear a mask when around other people if able. Prescriptions: Nirmatrelvir/Ritonavir [Paxlovid 2X150 mg-100 mg (Eua)] 1 each PO BID #1 packet Transmission Status: Received by [facility] Ondansetron [Zofran 4mg ODT] 4 mg PO TIDP PRN #10 tab PRN Reason: Nausea And Vomiting Transmission Status: Received by [facility] Referrals: Graham Guadarrama MD [Primary Care Provider] - - Critical Care Critical Care Time: No Attestation: On 09/25/21, the high probability of a clinically significant, sudden or life threatening deterioration of the following system(s) required my full and direct attention, intervention and personal management. The time I documented below is in addition to time spent performing reported procedures but includes the following listed in this critical care notation. Medical Decision Making - Dwayne Inquiry Pt receiving controlled substance: No Vital Signs: 09/25/21 13:15 09/25/21 13:54 09/25/21 14:00 Temperature 98.6 F Temperature Source Oral Pulse Rate 67 71 Pulse Rate [Left Radial] 50 L Respiratory Rate 18 Blood Pressure 96/66 L 113/76 Blood Pressure [Right Arm] 159/85 H Blood Pressure Mean 76 87 Blood Pressure Mean [Right Arm] 109 02 Sat by Pulse Oximetry 93 L 100 99 Oxygen Delivery Method Room Air - Lab Data Lab Results 09/25/21 13:15: SARS-CoV-2 (PCR) Detected A, Influenza A Untype (PCR) Not detected, Influenza Type B (PCR) Not detected 09/25/21 13:20: WBC 3.6 L, RBC 3.72 L, Hgb 10.2 L, Hct 32.3 L, MCV 86.7, MCH 27.3, MCHC 31.5 L, RDW 15.7, Plt Count 250, MPV 9.3, Neut % (Auto) 60.5, Lymph % (Auto) 31.0, [place] % (Auto) 7.4, Eos % (Auto) 0.1, Baso % (Auto) 1.1, Neut # (Auto) 2.2, Lymph # (Auto) 1.1, [place] # (Auto) 0.3, Eos # (Auto) 0.0, Baso # (Auto) 0.0 09/25/21 13:20: Sodium 134 L, Potassium 4.1, Chloride 101, Carbon Dioxide 28, Anion Gap 9.1, BUN 29 H, Creatinine 1.40 H, Estimated Creat Clear 28, Estimated GFR 48 L, Est GFR ( Amer) 58 L, Glucose 110 H, Calcium 8.7, Total Bilirubin < 0.1 L, AST 79 H, ALT 42, Alkaline Phosphatase 388 H, Total Protein 6.9, Albumin 3.9, Globulin 3.0, Albumin/Globulin Ratio 1.3 Result diagrams: 09/25/21 13:20 09/25/21 13:20 Orders (Tests/Meds): ED MEDICATIONS Generic Name Dose Route Start Last Admin Trade Name Freq PRN Reason Stop Dose Admin Sodium Chloride 10 ml 09/25/21 13:33 Sodium Chloride 0.9% 10ml Flush Syringe IV 10/25/21 13:32 NEE
--- NOTE | 2021-09-25 16:05 | ECG_ITS ---
APPROVED REPORT Exam: Resting ECG HR:66 bpm ECG Measurements Heart Rate 66 AXES AL 260 P 75 QRSd 90 QRS 9 QT 396 T 22 QTc 410 Conclusion SINUS RHYTHM WITH FIRST DEGREE AV BLOCK WITH OCCASIONAL SUPRAVENTRICULAR PREMATURE COMPLEXES POSSIBLE RIGHT VENTRICULAR CONDUCTION DELAY [RSR (QR) IN V1/V2] ANTEROSEPTAL MYOCARDIAL INFARCTION , OF INDETERMINATE AGE [40+ ms Q WAVE IN V1-V4] ABNORMAL ECG UNCONFIRMED REPORT Electronically signed by : Kishore Kellye MD 09/26/2021 21:40:56
[2021-09-25 16:15] LABS: Troponin I 0.02 ng/ml (0.00-0.034)
== END 2021-09-25 16:56 | disposition home or self-care (01) ==
PROVIDERS: Emergency Provider Emergency Medicine; PCP Emergency Medicine
DX: U07.1 COVID-19 (principal); Z79.899 Other long term (current) drug therapy; I48.91 Unspecified atrial fibrillation; I25.10 Atherosclerotic heart disease of native coronary artery without angina pectoris; K21.9 Gastro-esophageal reflux disease without esophagitis; E78.5 Hyperlipidemia, unspecified; I10 Essential (primary) hypertension; D64.9 Anemia, unspecified; M19.90 Unspecified osteoarthritis, unspecified site; E03.9 Hypothyroidism, unspecified; Z72.0 Tobacco use
CPT/HCPCS: 71045; 80053; 84484; 85025; 93005; 96365; 96375; 99284; C9803; J2405; U0003; U0005

== ENCOUNTER → 2022-01-13 12:55 | Outpatient (CLI) | payer MEDICARE, MEDICAID, SELFPAY ==
--- NOTE | 2022-01-13 13:07 | US_ITS ---
FINAL REPORT CLINICAL HISTORY: decreased pedal pulses, HTn, CAD, Smoker FINDINGS: COMPLETE ANKLE/BRACHIAL INDICES BILATERAL Complete ankle brachial indices were obtained. The right KAI is 1.3. The left KAI is 1.3. IMPRESSION: ABIs are within normal limits bilaterally. Reviewed, Interpreted and Dictated by Scotty Soni MD Transcribed by Wendy Bravo Authenticated and [facility]
--- NOTE | 2022-01-13 13:07 | CA_ITS ---
APPROVED REPORT EXAM: Comprehensive 2D, Doppler, and color-flow Echocardiogram Building Energy Consultant: Sheyla Gandara CRT Ht: 5 ft 7 in Wt: 135lbs BSA: 1.71 BP: 166/83 mmHg Indications: Shortness of Breath, Atrial Fibrillation, CAD, Hyperlipidemia, Cardiomyopathy, Hypertension/HDD 2D Dimensions LVOT 1.89 cm (M/F) 1.5-2.5 LA Volume 24.90 mL LA Volume Index 14.20 mL/m2 (M/F) 16-34 M-Mode Dimensions RVDd 3.13 cm (0.9-2.6) LA Diam 3.43 cm (1.9-4.0) LVDd 4.47 cm (3.5-5.7) Ao Diam 4.06 cm (2.0-3.7) LVDs 2.78 cm (3.5-5.7) IVSd 1.30 cm (0.6-1.1) PWd 0.80 cm (0.6-1.1) EF (Teich) 68.10% FS 37.80% EDV (Teich) 91.00 mL TAPSE 2.29 (<1.7) ESV (Teich) 29.00 mL LV Diastology E Decel Time 160.00 (160-240 msec) E/A Ratio 0.81 MED E' 5.40 (< 7 cm/sec) MED A' 8.90 cm/s E'/MED E' Ratio 10.70 (>14) LAT E' 5.70 (<10 cm/sec) LAT A' 8.80 cm/s E/LAT E' Ratio 10.14 (>14) Mitral Valve MV E Max Rohith. 58.00 (40-130 cm/s) MV A Velocity 71.00 (40-130 cm/s) E/A Ratio 0.81 MV Decel. Time 160.00 (160-240 ms) MV PHT 47.00 ms Pulmonary Valve PV Peak Velocity 184.00 (50-150 cm/s) Tricuspid Valve TR P. Velocity 235.00 cm/s RAP Estimate 10.00 mmHg RVSP 32.00 mmHg Left Ventricle Left atrium is mildly enlarged, left ventricle is normal size estimate ejection fraction 50% with no regional wall motion abnormality, diastolic parameters are inconclusive. Right Ventricle Right atrium and right ventricle are normal size and contractility. Aortic Valve Aortic valve is minimally thickened and fibrosed there is no aortic stenosis, there is mild aortic insufficiency. Mitral Valve Mitral valve leaflets are minimally thickened, there is mild mitral regurgitation. Tricuspid Valve Tricuspid valve is grossly normal, there is mild tricuspid regurgitation, tricuspid regurgitation jet plus is inadequate for calculation of the right ventricular systolic pressure. Pulmonic Valve Pulmonic valve is poorly visualized. Great Vessels Aortic root is normal size. Inferior vena cava is poorly visualized. Pericardium No significant pericardial effusion noted. Conclusion 1. Mildly enlarged atrium, normal left ventricular size, estimated ejection fraction 50% with no regional wall motion abnormality, diastolic parameters are inconclusive. 2. Mild aortic, mitral and tricuspid regurgitation. 3. No significant pericardial effusion noted. 4. Inferior vena cava is poorly visualized. Electronically signed by : Sampson Duarte MD 01/13/2022 20:50:35
== END ==
PROVIDERS: PCP Emergency Medicine; Visit Provider Physician Assistant
DX: E78.2 Mixed hyperlipidemia (principal); I10 Essential (primary) hypertension; I25.10 Atherosclerotic heart disease of native coronary artery without angina pectoris; I25.5 Ischemic cardiomyopathy; I48.0 Paroxysmal atrial fibrillation; K21.9 Gastro-esophageal reflux disease without esophagitis; R06.00 Dyspnea, unspecified; R09.89 Other specified symptoms and signs involving the circulatory and respiratory systems; I73.9 Peripheral vascular disease, unspecified
CPT/HCPCS: 93306; 93923

== ENCOUNTER → 2022-02-23 10:10 | Outpatient (CLI) | payer MEDICARE, MEDICAID, SELFPAY ==
[2022-02-23 10:53] LABS: Basophils % 0.3 % (0.1-2.0); Eosinophils # 0.2 K/mm3 (0.0-0.4); Eosinophils % 1.6 % (0.1-12.0); Hematocrit 32.7 % (42.0-52.0); Hemoglobin 10.6 g/dL (14.1-18.0); Lymphocytes # 1.4 K/mm3 (0.7-4.5); Lymphocytes % 14.3 % (10-50); Mean Corpuscular HGB Conc 32.5 g/dL (31.8-35.4); Mean Corpuscular Hemoglobin 27.2 pg (27.0-31.2); Mean Corpuscular Volume 83.7 fl (80-94); Mean Platelet Volume 8.3 fl (7.4-10.4); Monocytes # 0.6 K/mm3 (0.1-1.0); Monocytes % 6.4 % (1.7-9.3); Neutrophils # 7.4 K/mm3 (1.8-7.8); Neutrophils % 77.3 % (37.0-80.0); Platelet Count 312 K/mm3 (142-424); Red Cell Distribution Width 15.4 % (11.5-17.5); White Blood Count 9.6 K/mm3 (4.8-10.8)
[2022-02-23 11:22] LABS: Alanine Aminotransferase 25 U/L (12-78); Alkaline Phosphatase 313 U/L (38-126); Anion Gap 13.4 mEq/L (5-15); Aspartate Amino Transferase 38 U/L (17-59); Bilirubin,Direct 0.3 mg/dl (0.0-0.4); Bilirubin,Indirect 0.3 mg/dL (0.0-0.9); Bilirubin,Total 0.6 mg/dl (0.2-1.3); Bilirubin,Unconjugated 0.4 mg/dL (0.0-1.1); Blood Urea Nitrogen 20 mg/dl (9-20); Calcium 9.2 mg/dl (8.4-10.2); Carbon Dioxide 25 mmol/L (22.0-30.0); Chloride 106 mmol/L (98-107); Chol/HDL Ratio 2.8 (1-3.5); Cholesterol 133 mg/dl (140-200); Estimated Glomerular Filt Rate 58 ml/min (>60); GFR (African American) 70 ML/MIN (>60); Glucose 101 mg/dl (74-100); HDL Cholesterol 47 mg/dl (40-60); Potassium 4.4 mmoL/L (3.5-5.1); Sodium 140 mmol/L (136-145); Total Protein,Serum 7.1 g/dl (6.3-8.2); Triglycerides 91 mg/dl (30-150); VLDL Cholesterol 18 mg/dL (0-40)
[2022-02-23 11:33] LABS: Direct LDL Cholesterol 61.04 mg/dL (100-129)
[2022-02-23 11:39] LABS: Free T4 (Free Thyroxine) 1.52 ng/dl (0.78-2.19)
[2022-02-23 11:53] LABS: Thyroid Stimulating Hormone 1.84 uIU/mL (0.465-4.68)
== END ==
PROVIDERS: PCP Emergency Medicine; Visit Provider Nurse Practitioner
DX: E78.5 Hyperlipidemia, unspecified (principal); R00.0 Tachycardia, unspecified; I20.8 Other forms of angina pectoris
CPT/HCPCS: 36415; 80048; 80061; 80076; 84439; 84443; 85025

== ENCOUNTER → 2022-09-15 15:35 | Outpatient (CLI) | payer MEDICARE, MEDICAID, SELFPAY ==
[2022-09-15 13:14] LABS: Basophils % 0.4 % (0.1-2.0); Eosinophils # 0.2 K/mm3 (0.0-0.4); Eosinophils % 3.4 % (0.1-12.0); Hematocrit 38.3 % (42.0-52.0); Hemoglobin 11.9 g/dL (14.1-18.0); Lymphocytes # 1.6 K/mm3 (0.7-4.5); Mean Corpuscular Hemoglobin 27.6 pg (27.0-31.2); Mean Corpuscular Volume 89.2 fl (80-94); Mean Platelet Volume 7.9 fl (7.4-10.4); Monocytes # 0.4 K/mm3 (0.1-1.0); Monocytes % 6.5 % (1.7-9.3); Neutrophils # 4.2 K/mm3 (1.8-7.8); Neutrophils % 65.7 % (37.0-80.0); Platelet Count 333 K/mm3 (142-424); Red Blood Count 4.29 M/mm3 (4.60-6.20); Red Cell Distribution Width 14.9 % (11.5-17.5); White Blood Count 6.5 K/mm3 (4.8-10.8)
[2022-09-16 11:02] LABS: Prostate Specific Ag, Diagnost 22.3 ng/ml (0.0-4.0)
== END ==
PROVIDERS: Physician Assistant; PCP Emergency Medicine; Visit Provider Emergency Medicine
DX: I20.8 Other forms of angina pectoris (principal); N40.0 Benign prostatic hyperplasia without lower urinary tract symptoms
CPT/HCPCS: 84153; 85025

== ENCOUNTER → 2022-09-30 08:41 | Outpatient (CLI) | payer MEDICARE, MEDICAID, SELFPAY ==
--- NOTE | 2022-09-30 08:49 | CT_ITS ---
FINAL REPORT CLINICAL HISTORY: hernia COMPARISON: 08/10/2019 FINDINGS: CT OF THE ABDOMEN AND PELVIS WITH CONTRAST Axial CT images of the abdomen and pelvis were obtained after the administration of IV contrast. Coronal reformatted images were also obtained and reviewed.This study was performed with techniques to keep radiation doses as low as reasonably achievable (ALARA). Individualized dose reduction techniques using automated exposure control or adjustment of mA and/or kV according to the patient''s size were employed. Abdomen: Mild bibasilar atelectasis.. Cardiomegaly is noted. There is a less than 1 cm cyst in the left hepatic lobe. Gallbladder is present. The spleen is unremarkable. No adrenal mass is present. The pancreas has an unremarkable appearance. Bilateral renal cortical thinning and mild scarring. There are multiple small right renal cysts. The aorta is normal in caliber. There is moderate vascular calcification. There is no free fluid or adenopathy. No mass or abnormal fluid collection is seen. Pelvis: The appendix is not well-visualized. Urinary bladder wall thickening is likely inflammatory. Prostate is markedly enlarged at 7.6 cm in transverse dimension. There is no evidence of mass or adenopathy. There is sigmoid diverticulosis without evidence of acute diverticulitis. There is no evidence of bowel obstruction. Small right inguinal hernia containing nonobstructed portion of small bowel. Small left inguinal hernia containing fat. IMPRESSION: Markedly enlarged prostate. Urinary bladder wall thickening, likely inflammatory. Bilateral inguinal hernias as described. Bilateral renal cortical thinning and mild scarring with multiple small right renal cysts. Diverticulosis. Reviewed, Interpreted and Dictated by Major Mitchell III, MD Transcribed by Gisela Pineda Authenticated and [facility]
[2022-09-30 09:23] LABS: Blood Urea Nitrogen 20 mg/dl (9-20); Estimated Glomerular Filt Rate 58 ml/min (>60); GFR (African American) 70 ML/MIN (>60)
== END ==
LOC: RAD 08:43
PROVIDERS: PCP Emergency Medicine; Visit Provider Emergency Medicine
DX: K46.9 Unspecified abdominal hernia without obstruction or gangrene (principal)
CPT/HCPCS: 36415; 74177; 82565; 84520; Q9967

== ENCOUNTER → 2022-10-21 09:17 | Outpatient (CLI) | payer MEDICARE, MEDICAID, SELFPAY ==
--- NOTE | 2022-10-21 09:19 | CA_ITS ---
APPROVED REPORT EXAM: Comprehensive 2D, Doppler, and color-flow Echocardiogram Marine Pipefitter Helper: Rivka Dawkins RVT Ht: 5 ft 7 in Wt: 130lbs BSA: 1.68 BP: 157/84 mmHg Indications: SOA,CAD,ABN EKG,RBBB,SMOKER,A-FIB,CP,HTN 2D Dimensions LVOT 2.36 cm (M/F) 1.5-2.5 LA Volume 72.00 mL LA Volume Index 42.60 mL/m2 (M/F) 16-34 M-Mode Dimensions RVDd 2.85 cm (0.9-2.6) LA Diam 3.42 cm (1.9-4.0) LVDd 4.25 cm (3.5-5.7) Ao Diam 3.65 cm (2.0-3.7) LVDs 2.45 cm (3.5-5.7) IVSd 1.00 cm (0.6-1.1) PWd 0.54 cm (0.6-1.1) EF (Teich) 73.80% FS 42.40% EDV (Teich) 80.80 mL TAPSE 3.13 (<1.7) ESV (Teich) 21.20 mL LV Diastology E Decel Time 257.00 (160-240 msec) E/A Ratio 1.3 MED E' 9.70 (< 7 cm/sec) E'/MED E' Ratio 8.55 (>14) LAT E' 5.90 (<10 cm/sec) E/LAT E' Ratio 14.05 (>14) Aortic Valve LVOT Max 88.00 (70-110 cm/s) LVOT VTI 18.76 cm AoV Peak Rohith. 160.00 (50-130 cm/s) AO Peak GR. 10.20 mmHg AO Mean GR. 4.20 (<5 mmHg) AO VTI 33.57 (18-25 cm) DEEPTHI (VTI) 2.44 (2.5-4.5 cm2) Mitral Valve MV E Max Rohith. 83.00 (40-130 cm/s) MV A Velocity 64.00 (40-130 cm/s) E/A Ratio 1.29 MV Decel. Time 257.00 (160-240 ms) MV PHT 75.00 ms Pulmonary Valve PV Peak Velocity 72.00 (50-150 cm/s) Tricuspid Valve TR P. Velocity 277.00 cm/s RAP Estimate 10.00 mmHg RVSP 40.60 mmHg Left Ventricle The left ventricle is normal size. The left ventricular systolic function is normal. The left ventricular ejection fraction is within the normal range. There is normal left ventricular wall thickness. There is normal LV segmental wall motion. The diastolic function is indeterminate. LVEF is 55%. Right Ventricle The right ventricle is normal size. The right ventricular systolic function is normal. Atria Left atrium is moderately dilated. The right atrium size is mildly dilated. Aortic Valve The aortic valve is normal in structure. There is no aortic valvular stenosis. Trace aortic regurgitation. Mitral Valve The mitral valve is normal in structure. No evidence of mitral valve stenosis. Trace mitral regurgitation. Tricuspid Valve The tricuspid valve leaflets are thin and pliable. Mild to moderate tricuspid regurgitation. RVSP is 25-30 mmHg. Pulmonic Valve The pulmonary valve is normal in structure. Trace pulmonic regurgitation. Great Vessels The aortic root is normal in size. The ascending aorta is normal in size. IVC is normal in size and collapses >50% with inspiration. Pericardium Trivial circumferential pericardial effusion. No echo indications of tamponade. Other Information Study Quality: Fair Conclusion Normal biventricular systolic function Mild to moderate TR RVSP 25-30 mmHg Trivial pericardial effusion. No echo indications of tamponade. Electronically signed by : Kianna Villa, 10/26/2022 17:31:27
--- NOTE | 2022-10-21 09:19 | US_ITS ---
FINAL REPORT CLINICAL HISTORY: leg pain, CP, smoker, HTN, HLD, CAD, RBBB, AFIB, bilateral claudication, bilateral rest pain FINDINGS: COMPLETE ANKLE/BRACHIAL INDICES BILATERAL Complete ankle brachial indices were obtained. The right KAI is 1.3. The left KAI is noncompressible, not valid. IMPRESSION: Normal KAI on the right. Noncompressible, non valid KAI on the left. Reviewed, Interpreted and Dictated by Major Mitchell III, MD Transcribed by Wendy Bravo Authenticated and [facility]
== END ==
PROVIDERS: PCP Emergency Medicine; Visit Provider Nurse Practitioner
DX: I73.9 Peripheral vascular disease, unspecified (principal); I25.10 Atherosclerotic heart disease of native coronary artery without angina pectoris; I48.91 Unspecified atrial fibrillation; R06.00 Dyspnea, unspecified; R07.9 Chest pain, unspecified; R94.31 Abnormal electrocardiogram [ECG] [EKG]
CPT/HCPCS: 93306; 93923

== ENCOUNTER 2022-12-30 11:37 | Outpatient (CLI) | payer MEDICARE, MEDICAID, SELFPAY ==
[2022-12-30 14:41] VITALS: BMI 20.2
== END 2022-12-30 14:01 | disposition home or self-care (01) ==
LOC: LAB 11:42
PROVIDERS: PCP Emergency Medicine; Visit Provider Emergency Medicine
DX: E86.0 Dehydration (principal)

== ENCOUNTER → 2022-12-30 20:52 | Outpatient (CLI) | payer MEDICARE, MEDICAID, SELFPAY | PROVIDERS: PCP Emergency Medicine; Visit Provider Emergency Medicine | DX: R06.02 Shortness of breath (principal); U07.1 COVID-19 | CPT/HCPCS: 87635 ==

== ENCOUNTER 2023-07-08 09:11 | Outpatient (CLI) | payer MEDICARE, MEDICAID, SELFPAY ==
--- NOTE | 2023-07-08 09:12 | CT_ITS ---
FINAL REPORT CLINICAL HISTORY: abdominal pain COMPARISON: 09/30/2022 FINDINGS: There is scarring at the left lung base. Gallbladder is abnormal with heterogeneous attenuation which may be related to sludge. The liver is normal in size and attenuation. The spleen is unremarkable. The adrenals are normal. The pancreas is unremarkable. Benign-appearing cysts are seen within the right kidney measuring up to 1.4 cm in greatest dimension. Scarring is seen at the periphery of the kidneys. Precontrast images demonstrate no nephrolithiasis. There are postoperative changes at the base of the cecum. Prostate is markedly enlarged measuring 8 cm. There is stable urinary bladder wall thickening. Small fat-containing inguinal hernias are seen. There is diffuse sigmoid diverticulosis without evidence of diverticulitis. IMPRESSION: Sludge in the gallbladder. Markedly enlarged prostate with stable urinary bladder wall thickening. Reviewed, Interpreted and Dictated by Scotty Soni MD Transcribed by Ashly Pink Authenticated and [facility]
[2023-07-08 09:37] LABS: Blood Urea Nitrogen 20 mg/dl (9-20); Estimated Glomerular Filt Rate 63 ml/min (>60); GFR (African American) 77 ML/MIN (>60)
[2023-07-08] MEDS: IOPAMIDOL-370 (76%);100ML BOTTLE 75 ML IV (10:59)
[2023-07-08] MEDS: SODIUM CHLORIDE 0.9% 10ML SYR (RAD ONLY) 10 ML IV (10:59)
[2023-07-08 13:24] LABS: Alanine Aminotransferase 17 U/L (12-78); Albumin Level 3.8 g/dl (3.5-5.0); Albumin/Globulin Ratio 1.4 (1.1-1.8); Alkaline Phosphatase 220 U/L (38-126); Anion Gap 15.8 mEq/L (5-15); Aspartate Amino Transferase 37 U/L (17-59); Blood Urea Nitrogen 21 mg/dl (9-20); Calcium 9.4 mg/dl (8.4-10.2); Carbon Dioxide 26 mmol/L (22.0-30.0); Chloride 104 mmol/L (98-107); Chol/HDL Ratio 2.6 (1-3.5); Cholesterol 151 mg/dl (140-200); Estimated Glomerular Filt Rate 57 ml/min (>60); GFR (African American) 69 ML/MIN (>60); Globulin 2.8 g/dL (1.3-3.2); Glucose 91 mg/dl (74-100); HDL Cholesterol 57 mg/dl (40-60); Potassium 4.8 mmoL/L (3.5-5.1); Sodium 141 mmol/L (136-145); Total Protein,Serum 6.6 g/dl (6.3-8.2); Triglycerides 90 mg/dl (30-150); VLDL Cholesterol 18 mg/dL (0-40)
[2023-07-08 13:28] LABS: Basophils % 0.6 % (0.1-2.0); Eosinophils # 0.2 K/mm3 (0.0-0.4); Eosinophils % 3.5 % (0.1-12.0); Hematocrit 36.6 % (42.0-52.0); Hemoglobin 11.8 g/dL (14.1-18.0); Lymphocytes # 1.6 K/mm3 (0.7-4.5); Lymphocytes % 27.5 % (10-50); Mean Corpuscular HGB Conc 32.2 g/dL (31.8-35.4); Mean Corpuscular Hemoglobin 29.5 pg (27.0-31.2); Mean Corpuscular Volume 91.6 fl (80-94); Mean Platelet Volume 8.2 fl (7.4-10.4); Monocytes # 0.4 K/mm3 (0.1-1.0); Monocytes % 6.9 % (1.7-9.3); Neutrophils # 3.5 K/mm3 (1.8-7.8); Neutrophils % 61.5 % (37.0-80.0); Platelet Count 277 K/mm3 (142-424); White Blood Count 5.7 K/mm3 (4.8-10.8)
[2023-07-08 13:35] LABS: Direct LDL Cholesterol 71.99 mg/dL (100-129)
[2023-07-08 13:55] LABS: Prostate Specific Ag Screen 5.6 ng/ml (0.0-4.0)
[2023-07-08 13:57] LABS: Thyroid Stimulating Hormone 5.56 uIU/mL (0.465-4.68)
== END 2023-07-08 23:59 | disposition home or self-care (01) ==
LOC: RAD 09:12
PROVIDERS: PCP Family Medicine; Visit Provider Family Medicine
DX: D64.9 Anemia, unspecified (principal); R19.09 Other intra-abdominal and pelvic swelling, mass and lump; R10.819 Abdominal tenderness, unspecified site; R10.9 Unspecified abdominal pain; Z12.5 Encounter for screening for malignant neoplasm of prostate; E78.5 Hyperlipidemia, unspecified; E03.9 Hypothyroidism, unspecified
CPT/HCPCS: 36415; 74178; 80053; 80061; 82565; 84443; 84520; 85025; G0103; Q9967

== ENCOUNTER 2023-10-06 10:37 | Outpatient (CLI) | payer MEDICARE, MEDICAID, SELFPAY ==
[2023-10-06 19:49] LABS: Free Thyroxine Index 3.6 ug/dL (5.93-13.13); T4 (Thyroxine) 11.6 ug/dl (5.53-11.0); Triiodothryronine (T3) Uptake 31 % (23.5-40.5)
[2023-10-06 20:02] LABS: Thyroid Stimulating Hormone 2.26 uIU/mL (0.465-4.68)
== END 2023-10-06 23:59 | disposition home or self-care (01) ==
LOC: LAB.DROPOF 10-07 10:38
PROVIDERS: PCP Family Medicine; Visit Provider Family Medicine
DX: R41.3 Other amnesia (principal); Z12.5 Encounter for screening for malignant neoplasm of prostate
CPT/HCPCS: 84436; 84443; 84479

== ENCOUNTER 2024-02-17 08:43 | Outpatient (CLI) | payer MEDICARE, MEDICAID, SELFPAY ==
--- NOTE | 2024-02-17 08:43 | MR_ITS ---
FINAL REPORT TECHNIQUE: Multiplanar and multisequence imaging of the brain was obtained without contrast. CLINICAL HISTORY: Memory loss FINDINGS: The gyri and sulci are within normal limits for age. There is no mass effect or midline shift. The ventricles are symmetric in size and configuration without hydrocephalus. There is mild periventricular and subcortical white matter change. Bilateral dilated perivascular spaces are noted. The cerebellum and brainstem have a normal appearance. There are no areas of restricted diffusion on diffusion weighted images to suggest acute infarct. There is fluid in the right mastoid air cells. There is mucoperiosteal thickening in the right maxillary sinus with an air-fluid level. IMPRESSION: No acute intracranial abnormality. Changes of chronic small vessel ischemia. Right mastoiditis and right maxillary sinusitis. Reviewed, Interpreted and Dictated by Pema Bernabe MD Transcribed by Maribell Dawson Authenticated and . [facility]
== END 2024-02-17 23:59 | disposition home or self-care (01) ==
LOC: RAD 08:43
PROVIDERS: PCP Family Medicine; Visit Provider Specialist
DX: R41.3 Other amnesia (principal); D64.9 Anemia, unspecified
CPT/HCPCS: 70551

== ENCOUNTER 2024-02-23 18:53 | Outpatient (CLI) | payer MEDICARE, MEDICAID, SELFPAY ==
[2024-02-23 19:18] LABS: Basophils % 0.3 % (0.1-2.0); Eosinophils # 0.1 K/mm3 (0.0-0.4); Eosinophils % 2.3 % (0.1-12.0); Hematocrit 38.1 % (42.0-52.0); Hemoglobin 12.2 g/dL (14.1-18.0); Lymphocytes # 1.1 K/mm3 (0.7-4.5); Lymphocytes % 18.5 % (10-50); Mean Corpuscular Volume 90.7 fl (80-94); Mean Platelet Volume 10.4 fl (7.4-10.4); Monocytes # 0.4 K/mm3 (0.1-1.0); Monocytes % 7.2 % (1.7-9.3); Neutrophils # 4.4 K/mm3 (1.8-7.8); Neutrophils % 71.4 % (37.0-80.0); Platelet Count 253 K/mm3 (142-424); White Blood Count 6.1 K/mm3 (4.8-10.8)
[2024-02-23 19:52] LABS: Alanine Aminotransferase 29 U/L (12-78); Albumin Level 4.1 g/dl (3.5-5.0); Albumin/Globulin Ratio 1.6 (1.1-1.8); Alkaline Phosphatase 315 U/L (38-126); Anion Gap 13.5 mEq/L (5-15); Aspartate Amino Transferase 48 U/L (17-59); Bilirubin,Total 1.2 mg/dl (0.2-1.3); Blood Urea Nitrogen 17 mg/dl (9-20); Calcium 9.7 mg/dl (8.4-10.2); Carbon Dioxide 28 mmol/L (22.0-30.0); Chloride 102 mmol/L (98-107); Estimated Glomerular Filt Rate 63 ml/min (>60); GFR (African American) 77 ML/MIN (>60); Globulin 2.6 g/dL (1.3-3.2); Glucose 90 mg/dl (74-100); Potassium 4.5 mmoL/L (3.5-5.1); Sodium 139 mmol/L (136-145); Total Protein,Serum 6.7 g/dl (6.3-8.2)
[2024-02-23 20:30] LABS: Iron 140 ug/dL (49-181)
[2024-02-23 20:40] LABS: Total Iron Binding Capacity 403 ug/dL (261-462); Total Iron Binding Capacity 406 ug/dL (261-462)
[2024-02-23 20:58] LABS: Vitamin B12 457 pg/mL (239-931)
[2024-02-23 21:02] LABS: Folate 5.23 ng/mL
[2024-02-23 21:03] LABS: Thyroid Stimulating Hormone 2.86 uIU/mL (0.465-4.68)
[2024-02-24 17:57] LABS: RPR W/RFX Titers Nonreactive (Nonreactive)
[2024-02-25 10:11] LABS: Anti-Centromere B Antibodies <0.2 AI (0.0-0.9); Anti-DNA (DS) Ab Qn 1 IU/mL (0-9); Anti-Jo-1 <0.2 AI (0.0-0.9); Anti-Smith Antibody <0.2 AI (0.0-0.9); Antichromatin Antibodies 0.7 AI (0.0-0.9); Antiscleroderma-70 Antibodies <0.2 AI (0.0-0.9); RNP Antibodies <0.2 AI (0.0-0.9); Sjogren's Anti-SS-A 1.4 AI (0.0-0.9); Sjogren's Anti-SS-B <0.2 AI (0.0-0.9)
== END 2024-02-23 23:59 | disposition home or self-care (01) ==
LOC: LAB.DROPOF 18:55
PROVIDERS: PCP Specialist; Visit Provider Specialist
DX: N18.31 Chronic kidney disease, stage 3a (principal); R41.3 Other amnesia; D64.9 Anemia, unspecified
CPT/HCPCS: 80053; 82607; 82746; 83540; 83550; 84443; 85025; 86225; 86235; 86592

== ENCOUNTER 2024-04-20 09:14 | Outpatient (CLI) | payer MEDICARE, MEDICAID, SELFPAY ==
[2024-04-20 10:27] LABS: Basophils % 0.6 % (0.1-2.0); Eosinophils # 0.2 K/mm3 (0.0-0.4); Eosinophils % 2.8 % (0.1-12.0); Hematocrit 38.6 % (42.0-52.0); Hemoglobin 12.9 g/dL (14.1-18.0); Lymphocytes # 1.5 K/mm3 (0.7-4.5); Lymphocytes % 22.6 % (10-50); Mean Corpuscular HGB Conc 33.4 g/dL (31.8-35.4); Mean Corpuscular Hemoglobin 29.3 pg (27.0-31.2); Mean Corpuscular Volume 87.7 fl (80-94); Mean Platelet Volume 10.4 fl (7.4-10.4); Monocytes # 0.6 K/mm3 (0.1-1.0); Monocytes % 8.2 % (1.7-9.3); Neutrophils # 4.4 K/mm3 (1.8-7.8); Neutrophils % 65.4 % (37.0-80.0); Platelet Count 220 K/mm3 (142-424); Red Cell Distribution Width 13.9 % (11.5-17.5); White Blood Count 6.7 K/mm3 (4.8-10.8)
[2024-04-20 11:00] LABS: Albumin Level 4.3 g/dl (3.5-5.0)
[2024-04-20 11:01] LABS: Chloride 105 mmol/L (98-107); Potassium 4.6 mmoL/L (3.5-5.1); Sodium 141 mmol/L (136-145)
[2024-04-20 11:03] LABS: Bilirubin,Unconjugated 0.4 mg/dL (0.0-1.1); Blood Urea Nitrogen 20 mg/dl (9-20); Estimated Glomerular Filt Rate 52 ml/min (>60); GFR (African American) 63 ML/MIN (>60)
[2024-04-20 11:04] LABS: Alanine Aminotransferase 31 U/L (12-78); Alkaline Phosphatase 313 U/L (38-126); Anion Gap 12.6 mEq/L (5-15); Aspartate Amino Transferase 48 U/L (17-59); Bilirubin,Direct 0.3 mg/dl (0.0-0.4); Bilirubin,Indirect 0.4 mg/dL (0.0-0.9); Bilirubin,Total 0.7 mg/dl (0.2-1.3); Calcium 9.4 mg/dl (8.4-10.2); Carbon Dioxide 28 mmol/L (22.0-30.0); Chol/HDL Ratio 2.7 (1-3.5); Cholesterol 137 mg/dl (140-200); Glucose 95 mg/dl (74-100); HDL Cholesterol 51 mg/dl (40-60); Total Protein,Serum 6.8 g/dl (6.3-8.2); Triglycerides 100 mg/dl (30-150); VLDL Cholesterol 20 mg/dL (0-40)
[2024-04-20 11:15] LABS: Direct LDL Cholesterol 54.61 mg/dL (100-129)
== END 2024-04-20 23:59 | disposition home or self-care (01) ==
LOC: LAB 09:16
PROVIDERS: PCP Family Medicine; Visit Provider Nurse Practitioner
DX: I25.5 Ischemic cardiomyopathy (principal); I48.0 Paroxysmal atrial fibrillation; D64.9 Anemia, unspecified; R55 Syncope and collapse; R42 Dizziness and giddiness; I25.10 Atherosclerotic heart disease of native coronary artery without angina pectoris; E78.2 Mixed hyperlipidemia
CPT/HCPCS: 36415; 80048; 80061; 80076; 85025

== ENCOUNTER 2024-04-27 09:49 | Outpatient (CLI) | payer MEDICARE, MEDICAID, SELFPAY ==
--- NOTE | 2024-04-27 09:53 | US_ITS ---
FINAL REPORT CLINICAL HISTORY: leg pain, current smoker, HTN, CAD, bilateral claudication, prior angioplasty, hyperlipidemia FINDINGS: Ankle-brachial indices was obtained. The right KAI is 1.4. The left KAI is 1.3. IMPRESSION: ABIs are within normal limits bilaterally. Reviewed, Interpreted and Dictated by Scotty Soni MD Transcribed by Wendy Bravo Authenticated and [facility]
== END 2024-04-27 23:59 | disposition home or self-care (01) ==
LOC: RT 09:51
PROVIDERS: PCP Family Medicine; Visit Provider Nurse Practitioner
DX: I73.9 Peripheral vascular disease, unspecified (principal); M79.606 Pain in leg, unspecified; I10 Essential (primary) hypertension; I25.10 Atherosclerotic heart disease of native coronary artery without angina pectoris; E78.5 Hyperlipidemia, unspecified; Z98.61 Coronary angioplasty status
CPT/HCPCS: 93923

== ENCOUNTER 2024-10-04 10:20 | Outpatient (CLI) | payer MEDICARE, MEDICAID, SELFPAY ==
[2024-10-04 16:38] LABS: Albumin Level 4.4 g/dl (3.5-5.0); Chloride 107 mmol/L (98-107)
[2024-10-04 16:39] LABS: Potassium 4.9 mmoL/L (3.5-5.1); Sodium 142 mmol/L (136-145)
[2024-10-04 16:41] LABS: Blood Urea Nitrogen 23 mg/dl (9-20); Creatinine,Serum 1.30 mg/dl (0.66-1.25); Estimated Glomerular Filt Rate 52 ml/min (>60); GFR (African American) 63 ML/MIN (>60)
[2024-10-04 16:42] LABS: Alanine Aminotransferase 19 U/L (12-78); Albumin/Globulin Ratio 1.4 (1.1-1.8); Alkaline Phosphatase 264 U/L (38-126); Aspartate Amino Transferase 38 U/L (17-59); Bilirubin,Total 1.3 mg/dl (0.2-1.3); Calcium 9.7 mg/dl (8.4-10.2); Globulin 3.1 g/dL (1.3-3.2); Glucose 94 mg/dl (74-100); Total Protein,Serum 7.5 g/dl (6.3-8.2)
[2024-10-04 18:28] LABS: Prostate Specific Ag, Diagnost 3.55 ng/ml (0.0-4.0)
[2024-10-04 19:36] LABS: Anion Gap 13.9 mEq/L (5-15); Carbon Dioxide 26 mmol/L (22.0-30.0)
== END 2024-10-04 23:59 | disposition home or self-care (01) ==
LOC: LAB.DROPOF 10-05 12:15
PROVIDERS: PCP Family Medicine; Visit Provider Family Medicine
DX: N17.9 Acute kidney failure, unspecified (principal); N40.0 Benign prostatic hyperplasia without lower urinary tract symptoms
CPT/HCPCS: 80053; 84153